=== PATIENT | male | born 1960 | race Caucasian/White ===

== ENCOUNTER 2016-07-26 11:13 | Inpatient (IN) | payer OTHER ==
[2016-07-26] VITALS (12 sets, daily range): BP systolic 102–148; BP diastolic 58–85; PULSE 73–88; RESP 18–22; TEMP 97.8–99.8; O2SAT 88–96
[~2016-07-26] VITALS: Ht 177.8 cm; Wt 54.8 kg
[~2016-07-26 11:13] MED LIST: AMIO200T PO; AMLO5 PO; Aspirin Chew PO; CARV3.125 PO; CITA20TA4 PO; DOCU1CAP39 PO; GLUC100017 PO; LORA-475 PO; MAGN500T4 PO; RITA20TA PO; SIMV20TA PO; SYMB160A INH; VENTAER INH
--- NOTE | 2016-07-26 11:43 | PD ---
HPI Chief Complaint: Chest Pain Time Seen by Provider: 11:23 Travel History International Travel<30 days: No Contact w/Intl Traveler<30days: No Traveled to known affect area: No History of Present Illness HPI This patient complains of cough and shortness of breath. Duration one day. Severity is moderate. He's had a bit of congestion and runny nose as well. Cough sometimes is productive. When he coughs his chest wall is irritated but only during the cough does he get any sort of pain or discomfort. Has subjective fever but never took his temperature. No alleviating factors. Patient bypass grafting surgery in March 2016 and has been diagnosed with COPD but unfortunately still smokes [facility] Past Medical History Asthma: No Anxiety: Yes Depression: No Heart Rhythm Problems: No Cancer: No Cardiovascular Problems: Yes High Cholesterol: No Chest Pain: Yes Congestive Heart Failure: No COPD: No Diabetes: No Diverticulitis: Yes Endocrine: No Glaucoma: No Genitourinary: No Hepatitis: No Hiatal Hernia: No Hypertension: Yes Immune Disorder: No Musculoskeletal: No Neurologic: No Psychiatric: Yes Reproductive: No Respiratory: No Integumentary: No Immunizations Current: Yes Sleep Apnea: No Thyroid Disease: No Past Surgical History Abdominal Surgery: Yes (hernia 2011) AICD: No Cardiac Surgery: No Ear Surgery: No Endocrine Surgery: No Eye Surgery: No Genitourinary Surgery: No Gynecologic Surgery: No Joint Replacement: No Oral Surgery: No Pacemaker: No Thoracic Surgery: No Social History Alcohol Use: Yes Tobacco Use: Yes (1PPD) Substance Use: No Allergies-Medications (Allergen,Severity, Reaction): Coded Allergies: No Known Allergies (Unverified , 03/05/16) Reported Meds & Prescriptions Reported Meds & Active Scripts Active Ventolin Hfa 18 GM Inh (Albuterol Sulfate) 90 Mcg/Act Aer 2 Puff INH Q4-6H PRN Norvasc (Amlodipine Besylate) 5 Mg Tab 5 Mg PO DAILY Symbicort Inh (Budesonide/Formoterol Fumarate) 160-4.5 Mcg/Act Aero 2 Puff INH Q12HR [Aspirin Chew] 81 MG Chew 81 Mg PO DAILY Reported Magnesium 500 Mg Tab 500 Mg PO HS Coreg (Carvedilol) 3.125 Mg Tab 3.125 Mg PO BID Citalopram (Citalopram Hydrobromide) 20 Mg Tab 20 Mg PO DAILY Ativan (Lorazepam) 2 Mg Tab 2 Mg PO HS PRN Ritalin IR (Methylphenidate HCl) 20 Mg Tab 20 Mg PO DAILY Simvastatin 20 Mg Tab 20 Mg PO HS Review of Systems General / Constitutional: No: Fever Eyes: No: Visual changes HENT: Positive: Rhinorrhea, Congestion, No: Headaches Cardiovascular: No: Tachycardia Respiratory: Positive: Cough, Shortness of Breath, Wheezing Gastrointestinal: No: Abdominal Pain Genitourinary: No: Dysuria Musculoskeletal: No: Pain Skin: No Rash Neurologic: No: Weakness Psychiatric: No: Depression Endocrine: No: Polydipsia Hematologic/Lymphatic: No: Easy Bruising Physical Exam Narrative GENERAL: Well-nourished, well-developed patient in no apparent distress. SKIN: Warm and dry. HEAD: Atraumatic. Normocephalic. EYES: Pupils equal and round. No scleral icterus. No injection or drainage. ENT: No nasal bleeding or discharge. Mucous membranes pink and moist. NECK: Trachea midline. No JVD. CARDIOVASCULAR: Regular rate and rhythm. No murmur appreciated. RESPIRATORY: No accessory muscle use. Diminished breath sounds throughout with some rhonchi and faint expiratory wheezing. Breath sounds equal bilaterally. GASTROINTESTINAL: Abdomen soft, non-tender, nondistended. Hepatic and splenic margins not palpable. MUSCULOSKELETAL: No obvious deformities. No clubbing. No cyanosis. No edema. Well-healed sternal scar NEUROLOGICAL: Awake and alert. No obvious cranial nerve deficits. Motor grossly within normal limits. Normal speech. PSYCHIATRIC: Appropriate mood and affect; insight and judgment normal. Data Data Last Documented VS Vital Signs Date Time Temp Pulse Resp B/P Pulse Ox O2 Delivery O2 Flow Rate FiO2 07/26/16 13:57 78 137/79 90 Nasal Cannula 5 07/26/16 11:31 99.8 22 Orders Complete Blood Count With Diff (07/26/16 11:32) Basic Metabolic Panel (Bmp) (07/26/16 11:32) Iv Access Insert/Monitor (07/26/16 11:32) Ecg Monitoring (07/26/16 11:32) Oximetry (07/26/16 11:32) Oxygen Administration (07/26/16 11:32) Chest, Single Ap (07/26/16 11:32) Sodium Chloride 0.9% Flush (Ns Flush) (07/26/16 11:45) Methylprednisolone So Succ Inj (Solumedr (07/26/16 11:45) Albuterol-Ipratropium Neb (Duoneb Neb) (07/26/16 11:45) Arterial Blood Gas (Abg) (07/26/16 ) Ct Pulmonary Angiogram (07/26/16 ) Prothrombin Time / Inr (Pt) (07/26/16 13:52) Act Partial Throm Time (Ptt) (07/26/16 13:52) Iohexol 350 Inj (Omnipaque 350 Inj) (07/26/16 13:53) Admit Order (Ed Use Only) (07/26/16 14:30) Labs Laboratory Tests Test 07/26/16 07/26/16 11:30 12:58 White Blood Count 10.1 TH/MM3 Red Blood Count 4.85 MIL/MM3 Hemoglobin 15.1 GM/DL Hematocrit 44.9 % Mean Corpuscular Volume 92.7 FL Mean Corpuscular Hemoglobin 31.1 PG Mean Corpuscular Hemoglobin 33.6 % Concent Red Cell Distribution Width 12.0 % Platelet Count 246 TH/MM3 Mean Platelet Volume 7.4 FL Neutrophils (%) (Auto) 78.0 % Lymphocytes (%) (Auto) 12.9 % Monocytes (%) (Auto) 8.6 % Eosinophils (%) (Auto) 0.1 % Basophils (%) (Auto) 0.4 % Neutrophils # (Auto) 7.9 TH/MM3 Lymphocytes # (Auto) 1.3 TH/MM3 Monocytes # (Auto) 0.9 TH/MM3 Eosinophils # (Auto) 0.0 TH/MM3 Basophils # (Auto) 0.0 TH/MM3 CBC Comment DIFF FINAL Differential Comment Sodium Level 142 MEQ/L Potassium Level 4.0 MEQ/L Chloride Level 106 MEQ/L Carbon Dioxide Level 26.0 MEQ/L Anion Gap 10 MEQ/L Blood Urea Nitrogen 13 MG/DL Creatinine 0.90 MG/DL Estimat Glomerular Filtration 87 ML/MIN Rate Random Glucose 111 MG/DL Calcium Level 8.4 MG/DL Blood Gas Puncture Site RT RADIAL Blood Gas Patient Temperature 98.6 Blood Gas HCO3 22 mmol/L Blood Gas Base Excess -1.0 mmol/L Blood Gas Oxygen Saturation 81 % Arterial Blood pH 7.47 Arterial Blood Partial 31 mmHG Pressure CO2 Arterial Blood Partial 47 mmHG Pressure O2 Arterial Blood Oxygen Content 16.6 Vol % Arterial Blood 2.1 % Carboxyhemoglobin Arterial Blood Methemoglobin 1.1 % Blood Gas Hemoglobin 14.6 G/DL Oxygen Delivery Device ROOM AIR Blood Gas Inspired Oxygen 21 % [facility] Medical Decision Making Medical Screen Exam Complete: Yes Emergency Medical Condition: Yes Medical Record Reviewed: Yes Differential Diagnosis Pneumonia, COPD, bronchitis Narrative Course I have reviewed the patient's electronic medical record. Reviewed his bypass grafting note from March 2016 as well as discharge summary from that hospitalization IV placed I reviewed his EKG which shows sinus rhythm and no ST elevation I reviewed his chest x-ray which is normal Extended cardiac monitoring reveals sinus rhythm without ectopy Pulse oximetry is 88% on room air Placed him on 3 L nasal cannula Gave him 3 nebulizer treatments and a dose of IV Solu-Medrol CBC is normal Metabolic profile is normal Coagulation studies are normal However despite all the above therapy he remains still hypoxic. I did a room air ABG which reveals a low PO2 of 47 showing significant hypoxemia Due to this I did a CTA of the chest to rule out PE and there is no evidence of PE Patient does not look unstable and looks clinically better than his PO2 would suggest He is now on 4 L nasal cannula with saturation of 95% I reviewed with hospitalist will admit Diagnosis Primary Impression: Acute hypoxemic respiratory failure Additional Impression: COPD with acute exacerbation Admitting Information Admitting Physician Requests: Admit Amilcar Yang MD Jul 26, 2016 11:43
[2016-07-26] MEDS ORDERED: SODIUM CHLORIDE 0.9% FLUSH 5 ML FLUSH IVF PRN (11:45)
[2016-07-26] MEDS ORDERED: methylPREDNISolone SOD SUCC 125 MG/2 ML VIAL IVP ONE (11:45)
[2016-07-26] MEDS: RESP: ALBUTEROL 2.5 MG/IPRATROPIUM 0.5 MG NEB (SCH) INH ×3 (11:50→20:06)
[2016-07-26 11:54] LABS: AUTOMATED NEUTROPHIL # 7.9 TH/MM3 (1.8-7.7); BASOPHIL % 0.4 % (0.0-2.0); EOSINOPHIL % 0.1 % (0.0-4.0); HEMATOCRIT 44.9 % (39.0-51.0); HEMO FLAGS DIFF FINAL; LYMPH % 12.9 % (9.0-44.0); LYMPHOCYTE # 1.3 TH/MM3 (1.0-4.8); MEAN CELL VOLUME 92.7 FL (80.0-100.0); MEAN CORPUSCULAR HEMOGLOBIN 31.1 PG (27.0-34.0); MEAN CORPUSCULAR HGB CONC 33.6 % (32.0-36.0); MONO % 8.6 % (0.0-8.0); PLATELET COUNT 246 TH/MM3 (150-450); RED BLOOD COUNT 4.85 MIL/MM3 (4.50-5.90); WHITE BLOOD COUNT 10.1 TH/MM3 (4.0-11.0)
--- NOTE | 2016-07-26 12:55 | RADHPO ---
EXAM DATE/TIME: 07/26/2016 12:05 [facility] COMPARISON: CHEST SINGLE AP, March 27, 2016, 5:18. INDICATIONS : Short of breath MEDICAL HISTORY : None. SURGICAL HISTORY : CABG. ENCOUNTER: Initial ACUITY: 1 day PAIN SCORE: 0/10 LOCATION: Bilateral chest FINDINGS: A single view of the chest demonstrates the lungs to be symmetrically aerated without evidence of mas s, infiltrate or effusion. The cardiomediastinal contours are unremarkable. Osseous structures are intact. Median sternotomy wires are intact. CONCLUSION: No acute cardiopulmonary process to explain current clinical symptoms. Hitesh Larsen MD on July 26, 2016 at 12:53 Board Certified Radiologist. This report was verified electronically.
[2016-07-26 13:07] LABS: BLOOD GAS CARBOXYHEMOGLOBIN 2.1 % (0-4); BLOOD GAS HCO3 22 mmol/L (22-26); BLOOD GAS METHEMOGLOBIN 1.1 % (0-2); BLOOD GAS O2 HGB SATURATION 81 % (90-100); BLOOD GAS OXYGEN CONTENT 16.6 Vol % (12.0-20.0); BLOOD GAS PCO2 31 mmHG (38-42); BLOOD GAS PO2 47 mmHG (61-120); BLOOD GAS TOTAL HGB 14.6 G/DL (12.0-16.0); TEMP CORR TO 98.6
[2016-07-26 13:08] LABS: CRITICAL VALUE YES; DRAW SITE RT RADIAL; FIO2 21 %; NUMBER OF ARTERIAL PUNCTURES 1; OXYGEN DEVICE ROOM AIR; STAT YES; ULNAR PULSE PRESENT
[2016-07-26] MEDS ORDERED: IOHEXOL 350 MG/ML 10 ML VIAL (for RAD DIAG) IV ONE (13:53)
--- NOTE | 2016-07-26 14:07 | RADHPO ---
EXAM DATE/TIME: 07/26/2016 13:35 2 [facility] COMPARISON: No previous studies available for comparison. INDICATIONS : Bilateral chest pain and short of breath on exertion. IV CONTRAST: 65 cc Omnipaque 350 (iohexol) IV RADIATION DOSE: 10.29 CTDIvol (mGy) MEDICAL HISTORY : Hypertension. Chronic obstructive pulmonary disease. Cardiovascular disease SURGICAL HISTORY : CABG Hernia repair. Orthopedic surgery. ENCOUNTER: Initial ACUITY: 1 day PAIN SCALE: 4/10 LOCATION: Bilateral chest TECHNIQUE: Volumetric scanning of the chest was performed using a pulmonary embolism protocol MIP images were re constructed. Using automated exposure control and adjustment of the mA and/or kV according to patien t size, radiation dose was kept as low as reasonably achievable to obtain optimal diagnostic quality images. FINDINGS: PULMONARY ARTERIES: No filling defects are seen in the pulmonary arteries through the segmental level. LUNGS: Moderate emphysematous changes. No evidence of focal infiltrate. PLEURAE: There is no pleural thickening or pleural effusion. MEDIASTINUM: There is good visualization of the great vessels of the middle mediastinum. No evidence of mediastin al or hilar adenopathy/mass. MUSCULOSKELETAL: Within normal limits for patient age. MISCELLANEOUS: The visualized upper abdominal organs demonstrate no acute abnormality. CONCLUSION: No evidence of pulmonary embolism Donny Washington MD on July 26, 2016 at 14:03 Board Certified Radiologist. This report was verified electronically.
[2016-07-26 14:43] LABS: APTT (PATIENT) 36.6 SEC (24.3-30.1); INTERNATIONAL NORMALIZED RATIO 1.1 RATIO; PROTHROMBIN TIME - PATIENT 11.7 SEC (9.8-11.6)
[2016-07-26] MEDS ORDERED: ONDANSETRON HCL 4 MG/2 ML VIAL IVP PRN (15:15)
[2016-07-26] MEDS ORDERED: RESP: ALBUTEROL 2.5 MG/3 ML NEB (PRN) INH (15:15)
[2016-07-26] MEDS ORDERED: ACETAMINOPHEN 325 MG TAB PO PRN (15:15)
[2016-07-26] MEDS ORDERED: SODIUM CHLORIDE 0.9% FLUSH 5 ML FLUSH FLUSH PRN (15:15)
[2016-07-26] MEDS ORDERED: NALOXONE HCL 0.4 MG/ML AMP IV PRN (15:15)
--- NOTE | 2016-07-26 15:30 | HHI.HP ---
HPI Service [facility] Hospitalists Primary Care Physician Dev Barragan MD Admission Diagnosis hypoxemic resp failure, COPD exac Diagnoses: Chief Complaint: SOB Cough Travel History International Travel<30 Days: No Contact w/Intl Traveler <30 Da: No Traveled to Known Affected Are: No History of Present Illness This is a 55-year-old male with past medical history significant for coronary artery disease status post CABG March 2016, COPD with continued tobacco use, HTN, anxiety and dyslipidemia who presents to [facility] ED with complaints of cough and progressive shortness of breath 2 days. Patient states yesterday he woke up with sore throat. Later in the day he developed dry cough and associated shortness of breath. Patient reports chest pain with cough only. He has some tenderness to touch over the anterior chest but states this has been present since he had his CABG procedure in March. He reports feeling feverish with chills. He did not record his temperature. He states that his chest feels very tight and he is congested. He reports generalized achiness. He denies any associated sore throat, runny nose, sinus or ear pain. He has a 16-year-old son with sinus infection. He reports headache. He continues to smoke a reported 1/3 - 1/2 pack per day and has smoked for 42 years. He denies using oxygen at home. He does not have a pulmonary doctor. He denies any N/V, dizziness, palpitations, sputum production, abdominal pain, hematuria, dysuria, diarrhea, hematochezia or melena. In the ED, patient received IV steroid and Duoneb treatment. He reports feeling much better now. CXR was unremarkable and CT chest showed only moderate emphysematous changes. Review of Systems Constitutional: COMPLAINS OF: Fever (reports being feverish x 24hrs), Chills, DENIES: Diaphoretic episodes, Weight loss, Dizziness Endocrine: DENIES: Polydipsia, Polyuria Eyes: DENIES: Blurred vision, Diplopia Ears, nose, mouth, throat: DENIES: Nasal discharge, Throat pain, Ear Pain, Running Nose, Sinus Pain Respiratory: COMPLAINS OF: Cough (dry x 2 days), Snoring (chronic), Shortness of breath (2 days as stated in history of present illness), DENIES: Wheezing, Hemoptysis, Sputum production Cardiovascular: COMPLAINS OF: Chest pain (with cough only), DENIES: Palpitations, Lower Extremity Edema, Orthopnea Gastrointestinal: DENIES: Abdominal pain, Black stools, Bloody stools, Diarrhea , Nausea, Vomiting Genitourinary: DENIES: Hematuria, Dysuria Musculoskeletal: DENIES: Joint Swelling, Back pain, Neck pain Integumentary: DENIES: Pruritus, Rash Hematologic/lymphatic: DENIES: Lymphadenopathy Immunologic/allergic: DENIES: Urticaria Neurologic: COMPLAINS OF: Headache (today), DENIES: Localized weakness Psychiatric: COMPLAINS OF: Anxiety (chronic, unchanged, takes 2 2mg Ativan nightly), DENIES: Confusion, Mood changes, Depression Past Family Social History Past Medical History CAD Hypertension Hyperlipidemia Anxiety Depression ADD COPD hx of diverticulitis Past Surgical History CABGx2 03/24 Inguinal hernia repair 2008 Reported Medications Ventolin Hfa 18 GM Inh (Albuterol Sulfate) 90 Mcg/Act Aer 2 Puff INH Q4-6H PRN Norvasc (Amlodipine Besylate) 5 Mg Tab 5 Mg PO DAILY Symbicort Inh (Budesonide/Formoterol Fumarate) 160-4.5 Mcg/Act Aero 2 Puff INH Q12HR [Aspirin Chew] 81 MG Chew 81 Mg PO DAILY Magnesium 500 Mg Tab 500 Mg PO HS Coreg (Carvedilol) 3.125 Mg Tab 3.125 Mg PO BID Citalopram (Citalopram Hydrobromide) 20 Mg Tab 20 Mg PO DAILY Ativan (Lorazepam) 2 Mg Tab 2 Mg PO HS PRN Ritalin IR (Methylphenidate HCl) 20 Mg Tab 20 Mg PO DAILY Simvastatin 20 Mg Tab 20 Mg PO HS Allergies: Coded Allergies: No Known Allergies (Unverified , 03/05/16) Active Ordered Medications Current Medications Medications (Trade) Dose Ordered Sig/Quan Route Start Time Stop Time Status Last Admin (NS Flush) 2 ml UNSCH PRN IVF 07/26/16 11:45 (Tylenol) 650 mg Q4H PRN PO 07/26/16 15:15 UNV (Zofran Inj) 4 mg Q6H PRN IVP 07/26/16 15:15 UNV (Colace) 100 mg Q12H PO 07/26/16 15:15 UNV (Narcan Inj) 0.4 mg UNSCH PRN IV 07/26/16 15:15 UNV (SoluMEDROL INJ) 40 mg Q8H IVP 07/26/16 15:15 UNV (Habitrol 21 Mg Patch.24 Hr) 1 patch DAILY TD 07/26/16 15:15 UNV Family History Father, age 85, stroke Mother, age 92, natural causes Social History Patient is and lives with his and son Works in food service utility worker industry Admits to tobacco use 1/3 - 1/2 pack/day x 42 years Reports h/o alcohol use 1 - 2 glasses wine/night Denies any illicit drug use Physical Exam Vital Signs Vital Signs Date Time Temp Pulse Resp B/P Pulse Ox O2 Delivery O2 Flow Rate FiO2 07/26/16 13:57 78 137/79 90 Nasal Cannula 5 07/26/16 13:15 91 Nasal Cannula 6.00 07/26/16 13:00 91 Nasal Cannula 5 07/26/16 11:31 99.8 88 22 148/85 88 07/26/16 11:25 90 Nasal Cannula 3 07/26/16 11:15 88 Nasal Cannula 2 Physical Exam GENERAL: This is a well-nourished, well-developed patient, in no apparent distress. On supplemental oxygen. SKIN: No rashes, ecchymoses or lesions. Cool and dry. HEAD: Atraumatic. Normocephalic. No temporal or scalp tenderness. EYES: Pupils equal round and reactive. Extraocular motions intact. No scleral icterus. No injection or drainage. ENT: Nose without bleeding, purulent drainage or septal hematoma. Throat without erythema, tonsillar hypertrophy or exudate. Uvula midline. Airway patent. NECK: Trachea midline. No lymphadenopathy. Supple, nontender, no meningeal signs. CARDIOVASCULAR: Well-healed sternotomy scar with some tenderness to palpation. Regular rate and rhythm without murmurs, gallops, or rubs. RESPIRATORY: Diminished air sounds. Scattered expiratory wheezing and inspiratory bronchial sounds appreciated. GASTROINTESTINAL: Abdomen soft, non-tender, nondistended. No hepato-splenomegaly , or palpable masses. No guarding. MUSCULOSKELETAL: Extremities without clubbing, cyanosis, or edema. No joint tenderness, effusion, or edema noted. No calf tenderness. NEUROLOGICAL: Awake and alert. Able to move all extremities. No focal neurologic deficits appreciated on exam. Laboratory Laboratory Tests Test 07/26/16 07/26/16 11:30 12:58 White Blood Count 10.1 Red Blood Count 4.85 Hemoglobin 15.1 Hematocrit 44.9 Mean Corpuscular Volume 92.7 Mean Corpuscular Hemoglobin 31.1 Mean Corpuscular Hemoglobin 33.6 Concent Red Cell Distribution Width 12.0 Platelet Count 246 Mean Platelet Volume 7.4 Neutrophils (%) (Auto) 78.0 Lymphocytes (%) (Auto) 12.9 Monocytes (%) (Auto) 8.6 Eosinophils (%) (Auto) 0.1 Basophils (%) (Auto) 0.4 Neutrophils # (Auto) 7.9 Lymphocytes # (Auto) 1.3 Monocytes # (Auto) 0.9 Eosinophils # (Auto) 0.0 Basophils # (Auto) 0.0 CBC Comment DIFF FINAL Differential Comment Prothrombin Time 11.7 Prothromb Time International 1.1 Ratio Activated Partial 36.6 Thromboplast Time Sodium Level 142 Potassium Level 4.0 Chloride Level 106 Carbon Dioxide Level 26.0 Anion Gap 10 Blood Urea Nitrogen 13 Creatinine 0.90 Estimat Glomerular Filtration 87 Rate Random Glucose 111 Calcium Level 8.4 Blood Gas Puncture Site RT RADIAL Blood Gas Patient Temperature 98.6 Blood Gas HCO3 22 Blood Gas Base Excess -1.0 Blood Gas Oxygen Saturation 81 Arterial Blood pH 7.47 Arterial Blood Partial 31 Pressure CO2 Arterial Blood Partial 47 Pressure O2 Arterial Blood Oxygen Content 16.6 Arterial Blood 2.1 Carboxyhemoglobin Arterial Blood Methemoglobin 1.1 Blood Gas Hemoglobin 14.6 Oxygen Delivery Device ROOM AIR Blood Gas Inspired Oxygen 21 Result Diagram: 07/26/16 1130 07/26/16 1130 Imaging Last 48 hours Impressions Chest X-Ray 07/26/16 1132 Signed Impressions: Service Date/Time: Tuesday, July 26, 2016 12:05 - CONCLUSION: No acute cardiopulmonary process to explain current clinical symptoms. Hitesh Larsen MD CT Angiography 07/26/16 0000 Signed Impressions: Service Date/Time: Tuesday, July 26, 2016 13:35 - CONCLUSION: No evidence of pulmonary embolism Donny Washington MD Assessment and Plan Assessment and Plan 55-year-old male with past medical history significant for coronary artery disease status post CABG March 2016, COPD with continued tobacco use, HTN, anxiety and dyslipidemia who presents to [facility] ED with complaints of cough and progressive shortness of breath 2 days. 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 Advised patient on suspicions and recommended cessation of alcohol consumption as well as Ativan use at night. Will also need pulmonary follow-up as an outpatient and sleep study. - Bedside PFTs ordered Bronchospasm with chest tightness & hx of COPD with ongoing tobacco use, however no hypercapnea - IV steroids - scheduled Duonebs - supplemental oxygen - cycle cardiac enzymes r/o underlying ACS considering his cardiac history - resume home bronchodilators - discussed smoking cessation - Nicotine patch - home oxygen walk test prior to discharge CAD/HTN/previous CABG with complaints of chest pain - hypotensive presently - ASA daily - hold Norvasc - resume home BB - monitor on telemetry - cycle cardiac enzymes Dyslipidemia - resume home statin Anxiety/depression - resume home Celexa - hold Lorazepam DVT prophylaxis - SCD/CUATE hose Written by Jael Palacios PA-C acting as scribe for Dr. Hernandez on 07/26/16 at 16:53. Physician Certification 2 Midnight Certification Type: Admission for Inpatient Services Order for Inpatient Services The services are ordered in accordance with Medicare regulations or non- Medicare payer requirements, as applicable. In the case of services not specified as inpatient-only, they are appropriately provided as inpatient services in accordance with the 2-midnight benchmark. Estimated LOS (days): 2 days is the estimated time the patient will need to remain in the hospital, assuming treatment plan goals are met and no additional complications. Post-Hospital Plan: Not yet determined Jael Palacios Jul 26, 2016 15:30 Calixto Hernandez MD Jul 26, 2016 18:31 Calixto Hernandez MD Jul 26, 2016 18:31
[2016-07-26] MEDS: NICOTINE 21 MG/24 HR PATCH TD SCH (15:37)
[2016-07-26] MEDS ORDERED: RESP: ALBUTEROL 2.5 MG/IPRATROPIUM 0.5 MG NEB (SCH) INH (16:00)
[2016-07-26] MEDS ORDERED: LORazepam 2 MG TAB PO PRN (16:15)
[2016-07-26 16:16] LABS: BLOOD GAS BASE EXCESS 0.2 mmol/L (-2-2); BLOOD GAS CARBOXYHEMOGLOBIN 1.8 % (0-4); BLOOD GAS HCO3 24 mmol/L (22-26); BLOOD GAS O2 HGB SATURATION 89 % (90-100); BLOOD GAS PCO2 38 mmHG (38-42); BLOOD GAS PO2 62 mmHG (61-120); BLOOD GAS TOTAL HGB 14.4 G/DL (12.0-16.0); CRITICAL VALUE YES; DRAW SITE LT RADIAL; LITER FLOW 4 L/M; NUMBER OF ARTERIAL PUNCTURES 1; OXYGEN DEVICE NASAL CANNULA; TEMP CORR TO 98.6
[2016-07-26 16:17] LABS: STAT NO; ULNAR PULSE PRESENT
[2016-07-26 20:36] LABS: CREATINE KINASE 116 U/L (39-308)
[2016-07-26 20:48] LABS: CKMB 0.7 NG/ML (0.5-3.6)
[2016-07-26] MEDS: REMOVE OLD NICODERM (NICOTINE) PATCH TD SCH (21:00)
[2016-07-26] MEDS: methylPREDNISolone SOD SUCC 40 MG/1 ML VIAL IV SCH (22:03)
[2016-07-26] MEDS: SODIUM CHLORIDE 0.9% FLUSH 5 ML FLUSH FLUSH SCH (22:03)
[2016-07-26] MEDS: DOCUSATE SODIUM 100 MG CAP PO SCH (22:05)
[2016-07-26] MEDS: BUDESONIDE-FORMOTEROL 160/4.5 MCG INHALER INH SCH (22:05)
[2016-07-26] MEDS: PRAVASTATIN SOD 40 MG TAB PO SCH (22:06)
[2016-07-26] MEDS: CARVEDILOL 3.125 MG TAB PO SCH (22:06)
[2016-07-26] MEDS ORDERED: diphenhydrAMINE HCL 25 MG CAP PO ONE (22:30)
[2016-07-27] VITALS (12 sets, daily range): BP systolic 121–148; BP diastolic 62–94; PULSE 47–83; RESP 18–22; TEMP 97.1–98.6; O2SAT 94–97
[2016-07-27 01:25] LABS: CREATINE KINASE 115 U/L (39-308)
[2016-07-27 01:38] LABS: CKMB 0.8 NG/ML (0.5-3.6)
[2016-07-27] MEDS: methylPREDNISolone SOD SUCC 40 MG/1 ML VIAL IV SCH ×2 (04:42→21:13)
[2016-07-27 05:21] LABS: AUTOMATED NEUTROPHIL # 11.3 TH/MM3 (1.8-7.7); BASOPHIL % 0.2 % (0.0-2.0); HEMATOCRIT 41.9 % (39.0-51.0); HEMO FLAGS DIFF FINAL; LYMPH % 8.2 % (9.0-44.0); LYMPHOCYTE # 1.1 TH/MM3 (1.0-4.8); MEAN CELL VOLUME 93.2 FL (80.0-100.0); MEAN CORPUSCULAR HEMOGLOBIN 31.9 PG (27.0-34.0); MEAN CORPUSCULAR HGB CONC 34.2 % (32.0-36.0); MONO % 3.5 % (0.0-8.0); NEUT % 88.1 % (16.0-70.0); PLATELET COUNT 224 TH/MM3 (150-450); RED BLOOD COUNT 4.49 MIL/MM3 (4.50-5.90); RED CELL DISTRIBUTION WIDTH 12.1 % (11.6-17.2); WHITE BLOOD COUNT 12.9 TH/MM3 (4.0-11.0)
[2016-07-27 05:38] LABS: MAGNESIUM 2.6 MG/DL (1.5-2.5)
[2016-07-27 05:50] LABS: CREATINE KINASE 94 U/L (39-308)
[2016-07-27 06:44] LABS: CHLORIDE 105 MEQ/L (98-107); POTASSIUM 4.3 MEQ/L (3.5-5.1); SODIUM (NA) 142 MEQ/L (136-145)
[2016-07-27 06:47] LABS: ANION GAP 11 MEQ/L (5-15); BICARBONATE 26.4 MEQ/L (21.0-32.0); BLOOD UREA NITROGEN 18 MG/DL (7-18)
[2016-07-27 06:50] LABS: ALT (GPT) 21 U/L (12-78); AST (GOT) 10 U/L (15-37); GLOMERULAR FILTRATION RATE 103 ML/MIN (>89)
[2016-07-27 06:52] LABS: TOTAL BILIRUBIN ADULT 0.4 MG/DL (0.2-1.0)
[2016-07-27 06:53] LABS: ALKALINE PHOSPHATASE 63 U/L (45-117)
[2016-07-27 07:17] LABS: CREATINE KINASE 93 U/L (39-308)
[2016-07-27] MEDS: RESP: ALBUTEROL 2.5 MG/IPRATROPIUM 0.5 MG NEB (SCH) INH ×4 (07:46→19:49)
[2016-07-27] MEDS: BUDESONIDE-FORMOTEROL 160/4.5 MCG INHALER INH SCH ×2 (09:16→21:16)
[2016-07-27] MEDS: DOCUSATE SODIUM 100 MG CAP PO SCH ×2 (09:17→21:15)
[2016-07-27] MEDS: CITALOPRAM HYDROBROMIDE 20 MG TAB PO SCH (09:17)
[2016-07-27] MEDS: amLODIPine BESYLATE 5 MG TAB PO SCH (09:17)
[2016-07-27] MEDS: ASPIRIN 81 MG CHEW TAB PO SCH (09:17)
[2016-07-27] MEDS: NICOTINE 21 MG/24 HR PATCH TD SCH (09:18)
[2016-07-27] MEDS: CARVEDILOL 3.125 MG TAB PO SCH ×2 (09:18→21:15)
[2016-07-27] MEDS: SODIUM CHLORIDE 0.9% FLUSH 5 ML FLUSH FLUSH SCH ×2 (09:19→21:14)
--- NOTE | 2016-07-27 09:23 | HHI.PR ---
Subjective Remarks Follow-up on patient with acute hypoxic respiratory failure. Patient states he feels some better today. Reports improvement of cough without sputum production. SOB improved but still requiring supplemental oxygen 5LNC. Denies any chest pain overnight. Objective Vitals Vital Signs Date Time Temp Pulse Resp B/P Pulse Ox O2 Delivery O2 Flow Rate FiO2 07/27/16 08:00 97.2 56 20 145/84 97 07/27/16 07:48 94 Nasal Cannula 5.00 07/27/16 04:00 97.3 60 18 146/84 96 07/27/16 00:00 97.1 64 18 121/62 96 07/26/16 20:11 73 07/26/16 20:06 93 Nasal Cannula 5.00 07/26/16 20:00 97.8 79 18 124/79 96 07/26/16 18:38 84 07/26/16 17:50 98.3 78 20 118/80 91 07/26/16 16:24 98.4 80 20 107/61 91 Nasal Cannula 6 07/26/16 15:18 82 102/58 88 4 07/26/16 13:57 78 137/79 90 Nasal Cannula 5 07/26/16 13:15 91 Nasal Cannula 6.00 07/26/16 13:00 91 Nasal Cannula 5 07/26/16 12:00 88 Room Air 07/26/16 11:31 99.8 88 22 148/85 88 07/26/16 11:25 90 Nasal Cannula 3 07/26/16 11:15 88 Nasal Cannula 2 I/O 07/26/16 07/26/16 07/26/16 07/27/16 07/27/16 07/27/16 07:00 15:00 23:00 07:00 15:00 23:00 Intake Total 0 ml 240 ml Output Total 200 ml Balance 0 ml 40 ml Intake Oral 240 ml IV Total 0 ml 0 ml Output Urine Total 200 ml # Bowel Movements 0 Result Diagram: 07/27/16 0508 07/27/16 0508 Imaging Last 48 hours Impressions Chest X-Ray 07/26/16 1132 Signed Impressions: Service Date/Time: Tuesday, July 26, 2016 12:05 - CONCLUSION: No acute cardiopulmonary process to explain current clinical symptoms. Hitesh Larsen MD CT Angiography 07/26/16 0000 Signed Impressions: Service Date/Time: Tuesday, July 26, 2016 13:35 - CONCLUSION: No evidence of pulmonary embolism Donny Washington MD Objective Remarks GENERAL: This is a well-nourished, well-developed patient, in no apparent distress. On supplemental oxygen 5L. SKIN: No rashes, ecchymoses or lesions. Cool and dry. HEAD: Atraumatic. Normocephalic. EYES: EOMI. NECK: Trachea midline. No JVD or lymphadenopathy. Supple, nontender, no meningeal signs. CARDIOVASCULAR: Well-healed sternotomy scar with some tenderness to palpation. Regular rate and rhythm without murmurs, gallops, or rubs. RESPIRATORY: Diminished air sounds. Rhonchi. GASTROINTESTINAL: Abdomen soft, non-tender, nondistended. No hepato-splenomegaly , or palpable masses. No guarding. MUSCULOSKELETAL: Extremities without clubbing, cyanosis, or edema. No joint tenderness, effusion, or edema noted. No calf tenderness. NEUROLOGICAL: Awake and alert. Able to move all 4 extremities. No focal neurologic deficit appreciated. Medications and IVs Current Medications Medications (Trade) Dose Ordered Sig/Quan Route Start Time Stop Time Status Last Admin (NS Flush) 2 ml UNSCH PRN FLUSH 07/26/16 15:15 07/27/16 04:43 (NS Flush) 2 ml BID FLUSH 07/26/16 21:00 07/27/16 09:19 (Tylenol) 650 mg Q4H PRN PO 07/26/16 15:15 (Zofran Inj) 4 mg Q6H PRN IVP 07/26/16 15:15 (Colace) 100 mg Q12HR PO 07/26/16 21:00 07/27/16 09:17 (Narcan Inj) 0.4 mg UNSCH PRN IV 07/26/16 15:15 (SoluMEDROL INJ) 40 mg Q8H IV 07/26/16 20:00 07/27/16 04:42 (Habitrol 21 Mg Patch.24 Hr) 1 patch DAILY TD 07/26/16 15:15 07/27/16 09:18 Miscellaneous Information 1 HS TD 07/26/16 21:00 07/26/16 21:00 (Symbicort 160-4.5 Inh) 2 puff Q12HR INH 07/26/16 21:00 07/27/16 09:16 (Coreg) 3.125 mg BID PO 07/26/16 21:00 07/27/16 09:18 (CeleXA) 20 mg DAILY PO 07/27/16 09:00 07/27/16 09:17 (Pravachol) 40 mg HS PO 07/26/16 21:00 07/26/16 22:06 (Aspirin Chew) 81 mg DAILY PO 07/27/16 09:00 07/27/16 09:17 (Norvasc) 5 mg DAILY PO 07/27/16 09:00 07/27/16 09:17 A/P Assessment and Plan 55-year-old male with past medical history significant for coronary artery disease status post CABG March 2016, COPD with continued tobacco use, HTN, anxiety and dyslipidemia who presents to [facility] ED with complaints of cough and progressive shortness of breath 2 days. 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 Advised patient on suspicions and recommended cessation of alcohol consumption as well as Ativan use at night. Will also need pulmonary follow-up as an outpatient and sleep study. Bronchospasm with chest tightness no documented history of COPD with ongoing tobacco use, however no hypercapnea - Continue IV steroids, begin taper - scheduled Duonebs - supplemental oxygen - cycle cardiac enzymes r/o underlying ACS considering his cardiac history - troponins neg x 4 - continue home bronchodilators - discussed smoking cessation - Nicotine patch - home oxygen walk test prior to discharge CAD/HTN/previous CABG with complaints of chest pain - hypotension resolved, resume home Norvasc, continue Carvedilol - ASA daily - d/c telemetry - cycle cardiac enzymes - troponins neg x 4 Dyslipidemia - resume home statin Anxiety/depression - continue home Celexa - hold Lorazepam DVT prophylaxis - SCD/CUATE hose Written by Jael Palacios, acting as scribe for Dr. Hernandez on 07/27/16 at 10:00. Jael Palacios Jul 27, 2016 09:23 Calixto Hernandez MD Jul 27, 2016 11:13 Calixto Hernandez MD Jul 27, 2016 11:13
--- NOTE | 2016-07-27 10:37 | EKG ---
Date Performed: 07/26/2016 Time Performed: 11:12:30 PTAGE: 55 years EKG: Sinus rhythm IV conduction defect Inferior ST-T changes are nonspecific Abnormal ECG PREVIOUS TRACING : 03/24/2016 05.18 DOCTOR: Jareth Gasca Interpretating Date/Time 07/27/2016 10:36:30
[2016-07-27] MEDS: REMOVE OLD NICODERM (NICOTINE) PATCH TD SCH (21:00)
[2016-07-27] MEDS ORDERED: diphenhydrAMINE HCL 25 MG CAP PO PRN (21:15)
[2016-07-27] MEDS: PRAVASTATIN SOD 40 MG TAB PO SCH (21:15)
[2016-07-28] VITALS (10 sets, daily range): BP systolic 125–141; BP diastolic 73–84; PULSE 51–63; RESP 18–22; TEMP 96–98.3; O2SAT 93–98
[2016-07-28] MEDS: RESP: ALBUTEROL 2.5 MG/IPRATROPIUM 0.5 MG NEB (SCH) INH ×4 (07:33→19:31)
[2016-07-28] MEDS: BUDESONIDE-FORMOTEROL 160/4.5 MCG INHALER INH SCH ×2 (08:29→21:53)
[2016-07-28] MEDS: amLODIPine BESYLATE 5 MG TAB PO SCH (08:30)
[2016-07-28] MEDS: DOCUSATE SODIUM 100 MG CAP PO SCH ×2 (08:30→21:00)
[2016-07-28] MEDS: CITALOPRAM HYDROBROMIDE 20 MG TAB PO SCH (08:30)
[2016-07-28] MEDS: CARVEDILOL 3.125 MG TAB PO SCH ×2 (08:30→21:53)
[2016-07-28] MEDS: ASPIRIN 81 MG CHEW TAB PO SCH (08:30)
[2016-07-28] MEDS: NICOTINE 21 MG/24 HR PATCH TD SCH (08:30)
[2016-07-28] MEDS: methylPREDNISolone SOD SUCC 40 MG/1 ML VIAL IV SCH (08:30)
[2016-07-28] MEDS: SODIUM CHLORIDE 0.9% FLUSH 5 ML FLUSH FLUSH SCH ×2 (08:31→21:53)
[2016-07-28] MEDS ORDERED: AZITHROMYCIN INJ 500 MG in SODIUM CHLOR 0.9% 250 ML INJ 250 ML IV SCH (18:00)
[2016-07-28] MEDS ORDERED: ZOLPIDEM TARTRATE 5 MG TAB PO PRN (18:15)
--- NOTE | 2016-07-28 19:18 | HHI.PR ---
Subjective Remarks Follow up on acute hypoxemic hypocapnic respiratory failure Resting on the chair , he is on 2 L nasal cannula oxygen today feeling slightly better He was seen by Dr. Donahue, who told him hopefully he will be able to be weaned off oxygen tomorrow and be discharged Objective Vitals Vital Signs Date Time Temp Pulse Resp B/P Pulse Ox O2 Delivery O2 Flow Rate FiO2 07/28/16 16:00 97.3 58 20 133/81 97 07/28/16 12:03 93 Nasal Cannula 2.00 07/28/16 12:00 96.0 58 20 129/84 95 07/28/16 08:00 96.4 51 20 141/82 98 07/28/16 08:00 52 07/28/16 07:34 98 Nasal Cannula 2.00 07/28/16 04:00 96.5 62 21 129/73 97 07/28/16 00:00 96.8 60 22 125/80 95 07/27/16 20:34 83 07/27/16 20:00 97.4 63 22 137/94 94 07/27/16 19:50 96 Nasal Cannula 2.00 I/O 07/27/16 07/27/16 07/27/16 07/28/16 07/28/16 07/28/16 07:00 15:00 23:00 07:00 15:00 23:00 Intake Total 240 ml 620 ml 0 ml 120 ml 1000 ml Output Total 200 ml Balance 40 ml 620 ml 0 ml 120 ml 1000 ml Intake Oral 240 ml 620 ml 120 ml 1000 ml IV Total 0 ml 0 ml 0 ml Output Urine Total 200 ml # Voids 2 1 2 4 # Bowel Movements 0 1 1 Result Diagram: 07/27/16 0508 07/27/16 0508 Objective Remarks GENERAL: This is a well-nourished, well-developed patient, in no apparent distress. On supplemental oxygen. SKIN: No rashes, ecchymoses or lesions. Cool and dry. HEAD: Atraumatic. Normocephalic. No temporal or scalp tenderness. EYES: Pupils equal round and reactive. Extraocular motions intact. No scleral icterus. No injection or drainage. ENT: Nose without bleeding, purulent drainage or septal hematoma. Throat without erythema, tonsillar hypertrophy or exudate. Uvula midline. Airway patent. NECK: Trachea midline. No lymphadenopathy. Supple, nontender, no meningeal signs. CARDIOVASCULAR: Well-healed sternotomy scar with some tenderness to palpation. Regular rate and rhythm without murmurs, gallops, or rubs. RESPIRATORY: Diminished air sounds. Scattered expiratory wheezing and inspiratory bronchial sounds appreciated. GASTROINTESTINAL: Abdomen soft, non-tender, nondistended. No hepato-splenomegaly , or palpable masses. No guarding. MUSCULOSKELETAL: Extremities without clubbing, cyanosis, or edema. No joint tenderness, effusion, or edema noted. No calf tenderness. NEUROLOGICAL: Awake and alert. Able to move all extremities. No focal neurologic deficits appreciated on exam. A/P Assessment and Plan 55-year-old male with past medical history significant for coronary artery disease status post CABG March 2016, COPD with continued tobacco use, HTN, anxiety and dyslipidemia who presents to [facility] ED with complaints of cough and progressive shortness of breath 2 days. 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 Advised patient on suspicions and recommended cessation of alcohol consumption as well as Ativan use at night. Will also need pulmonary follow-up as an outpatient and sleep study. Bronchospasm with chest tightness no documented history of COPD with ongoing tobacco use, however no hypercapnea - Continue IV steroids, begin taper - scheduled Duonebs - supplemental oxygen - cycle cardiac enzymes r/o underlying ACS considering his cardiac history - troponins neg x 4 - continue home bronchodilators - discussed smoking cessation - Nicotine patch - home oxygen walk test prior to discharge CAD/HTN/previous CABG with complaints of chest pain - hypotension resolved, resume home Norvasc, continue Carvedilol - ASA daily - d/c telemetry - cycle cardiac enzymes - troponins neg x 4 Dyslipidemia - resume home statin Anxiety/depression - continue home Celexa - hold Lorazepam DVT prophylaxis - SCD/CUATE hose Discharge Planning When cleared by pulmonology Calixto Hernandez MD Jul 28, 2016 19:18
--- NOTE | 2016-07-28 19:56 | MB ---
cc: EBONI HERNANDEZ MD, JOHN DATE OF CONSULTATION: 07/28/2016 REASON FOR CONSULTATION: COPD, acute bronchitis. HISTORY OF PRESENT ILLNESS: This is 55 year-old white male with a past history of coronary artery disease and COPD, has been a smoker for over 40 years. He apparently started to have dry cough two days ago with sinus drainage and over the course of one day his symptoms worsened to shortness of breath, cough, and wheezing. He was bringing up thick yellow mucous. The patient also had some chest tightness and back pain, and he thus came to the emergency room and was subsequently admitted. The patient had a chest x-ray and a CT scan of the chest, and CT angiogram showed no evidence of pulmonary emboli, and no acute process. His gases, however, showed hypoxemia and has been on oxygen at 2 liters. The patient has had no leg swelling or calf muscle pain. He has had no weight loss, and denies nausea, vomiting or reflux. PAST HISTORY 1. History of chronic bronchitis. 2. History of hypertension. 3. Hyperlipidemia. 4. Depression. 5. Coronary artery disease. 6. History of coronary artery bypass grafting x2 four months ago. 7. History of diverticulosis. 8. History of anxiety and depression. 9. History of inguinal hernia repair. HABITS The patient smoked one-pack per day for 40 years. No significant alcohol. He works at a fast food restaurant. FAMILY HISTORY Noncontributory ALLERGIES No drug allergies. MEDICATIONS: 1. Symbicort 160 x 4.5, two puffs b.i.d. 2. Ventolin two puffs p.r.n. 3. Coreg 3.125 b.i.d. 4. Citalopram 20 milligrams a day. 5. Ativan 2 milligrams hs. 6. Ritalin 20 milligrams daily. 7. Simvastatin 20 milligrams hs. 8. Norvasc 5 milligrams a day. REVIEW OF SYSTEMS The patient denies weight loss. He has some headaches, postnasal drip. He has wheezing and epigastric distress. Denies vomiting and no urinary symptoms. No leg or calf muscle pains. He has some joint pains of his extremities. PHYSICAL EXAMINATION This averagely built middle-aged white male is alert, face is flushed. VITAL SIGNS: Blood pressure 130/70, pulse is 80, respirations 22, temperature 98.2. HEENT: Head normocephalic. Pupils reactive. Tongue moist. Throat is injected, nasal mucosa erythematous. Neck: Supple. No bruits or thyroid enlargement or lymphadenopathy. Chest: Equal movements with distant breath sounds. Occasional expiratory wheezes throughout both lung lainez. Heart: The heart sounds are regular S1-S2. No murmur. Abdomen is soft, protuberant. No masses or organomegaly or tenderness. Bowel sounds active. Extremities: No edema. No lesions. No calf tenderness. Reflexes are normal, there were no gross motor deficits. Skin: No lesions observed. IMPRESSION 1. COPD with acute exacerbation 2. Asthmatic bronchitis 3. Nicotine dependency. 4. Anxiety, depression 5. History of coronary artery disease. 6. History of CABG. PLAN The patient has been placed on O2 at 2 liters. He will be weaned off the Solu-Medrol, placed on prednisone 20 mg b.i.d. We will continue with antibiotic coverage and he will be placed on Zithromax 500 mg IV daily. Pulmonary function was done but the results are pending. He was counseled about quitting cigarette smoking. The patient will also be placed on Symbicort 160 x 4.5 two puffs twice a day. If his oxygen saturation is adequate on room air, he will be weaned off oxygen and hopefully we can discharge him over the next 24 to 48 hours. Thank you, Dr. Hernandez, for this consultation. MD GABRIEL Dinero/ALESSANDRO /6:04 PM /7:44 PM
[2016-07-28] MEDS: REMOVE OLD NICODERM (NICOTINE) PATCH TD SCH (21:00)
[2016-07-28] MEDS: PRAVASTATIN SOD 40 MG TAB PO SCH (21:53)
[2016-07-28] MEDS: predniSONE 20 MG TAB PO SCH (21:53)
[2016-07-29] VITALS: BP 149/82; PULSE 60; RESP 18; TEMP 97.8; O2SAT 96
[2016-07-29 04:00] VITALS: BP 150/84; PULSE 60; RESP 18; TEMP 97.4; O2SAT 96
[2016-07-29] MEDS: RESP: ALBUTEROL 2.5 MG/IPRATROPIUM 0.5 MG NEB (SCH) INH (07:39)
[2016-07-29 07:40] VITALS: O2SAT 98
[2016-07-29 08:00] VITALS: BP 149/98; PULSE 51; PULSE 55; RESP 20; TEMP 96.8; O2SAT 92
[2016-07-29] MEDS: CARVEDILOL 3.125 MG TAB PO SCH (08:34)
[2016-07-29] MEDS: ASPIRIN 81 MG CHEW TAB PO SCH (08:34)
[2016-07-29] MEDS: predniSONE 20 MG TAB PO SCH (08:34)
[2016-07-29] MEDS: CITALOPRAM HYDROBROMIDE 20 MG TAB PO SCH (08:34)
[2016-07-29] MEDS: BUDESONIDE-FORMOTEROL 160/4.5 MCG INHALER INH SCH (08:34)
[2016-07-29] MEDS: DOCUSATE SODIUM 100 MG CAP PO SCH (08:34)
[2016-07-29] MEDS: amLODIPine BESYLATE 5 MG TAB PO SCH (08:34)
[2016-07-29] MEDS: NICOTINE 21 MG/24 HR PATCH TD SCH (08:35)
[2016-07-29] MEDS: SODIUM CHLORIDE 0.9% FLUSH 5 ML FLUSH FLUSH SCH (08:35)
[2016-07-29] MEDS ORDERED: ALBU0.08 INH (09:03)
[2016-07-29] MEDS ORDERED: NEBUKIT5 (09:03)
[2016-07-29] MEDS ORDERED: PRED10PA PO (09:03)
[2016-07-29] MEDS ORDERED: AZIT250T3 PO (09:03)
--- NOTE | 2016-07-29 09:04 | HHI.DCPOC ---
Discharge Care Plan Diagnosis: (1) Coronary artery disease (2) Tobacco abuse (3) COPD with acute exacerbation (4) Acute hypoxemic respiratory failure Goals to Promote Your Health * To prevent worsening of your condition and complications * To maintain your health at the optimal level Directions to Meet Your Goals Take your medications as prescribed Follow your dietary instruction Follow activity as directed Keep your appointments as scheduled Take your immunizations and boosters as scheduled If your symptoms worsen call your PCP, if no PCP go to Urgent Care Center or Emergency Room Smoking is Dangerous to Your Health. Avoid second hand smoke Call the 24-hour hour crisis hotline for domestic abuse at Amilcar Dunn MD Jul 29, 2016 09:04
--- NOTE | 2016-07-29 09:23 | HHI.DS ---
cc: Dev Barragan MD Discharge Summary Admission Date Jul 27, 2016 at 11:01 Discharge Date: Jul 29, 2016 Admitting Diagnosis hypoxemic resp failure, COPD exac (1) COPD with acute exacerbation ICD Code: J44.1 (2) Acute hypoxemic respiratory failure ICD Code: J96.01 Procedures None Brief History - From Admission This is a 55-year-old male with past medical history significant for coronary artery disease status post CABG March 2016, COPD with continued tobacco use, HTN, anxiety and dyslipidemia who presents to [facility] ED with complaints of cough and progressive shortness of breath 2 days. Patient states yesterday he woke up with sore throat. Later in the day he developed dry cough and associated shortness of breath. Patient reports chest pain with cough only. He has some tenderness to touch over the anterior chest but states this has been present since he had his CABG procedure in March. He reports feeling feverish with chills. He did not record his temperature. He states that his chest feels very tight and he is congested. He reports generalized achiness. He denies any associated sore throat, runny nose, sinus or ear pain. He has a 16-year-old son with sinus infection. He reports headache. He continues to smoke a reported 1/3 - 1/2 pack per day and has smoked for 42 years. He denies using oxygen at home. He does not have a pulmonary doctor. He denies any N/V, dizziness, palpitations, sputum production, abdominal pain, hematuria, dysuria, diarrhea, hematochezia or melena. In the ED, patient received IV steroid and Duoneb treatment. He reports feeling much better now. CXR was unremarkable and CT chest showed only moderate emphysematous changes. CBC/BMP: 07/27/16 0508 07/27/16 0508 Significant Findings Laboratory Tests Test 07/26/16 07/26/16 07/26/16 07/26/16 11:30 12:58 16:10 20:04 Neutrophils (%) (Auto) 78.0 % (16.0-70.0) Monocytes (%) (Auto) 8.6 % (0.0-8.0) Neutrophils # (Auto) 7.9 TH/MM3 (1.8-7.7) Prothrombin Time 11.7 SEC (9.8-11.6) Activated Partial 36.6 SEC Thromboplast Time (24.3-30.1) Estimat Glomerular Filtration 87 ML/MIN (>89) Rate Random Glucose 111 MG/DL (74-106) Calcium Level 8.4 MG/DL (8.5-10.1) Troponin I LESS THAN 0.02 LESS THAN 0.02 NG/ML NG/ML (0.02-0.05) (0.02-0.05) Blood Gas Oxygen Saturation 81 % (90-100) 89 % (90-100) Arterial Blood pH 7.47 (7.380-7.420) Arterial Blood Partial 31 mmHG (38-42) Pressure CO2 Arterial Blood Partial 47 mmHG Pressure O2 (61-120) Test 07/27/16 07/27/16 00:52 05:08 Troponin I LESS THAN 0.02 LESS THAN 0.02 NG/ML NG/ML (0.02-0.05) (0.02-0.05) White Blood Count 12.9 TH/MM3 (4.0-11.0) Red Blood Count 4.49 MIL/MM3 (4.50-5.90) Neutrophils (%) (Auto) 88.1 % (16.0-70.0) Lymphocytes (%) (Auto) 8.2 % (9.0-44.0) Neutrophils # (Auto) 11.3 TH/MM3 (1.8-7.7) Random Glucose 149 MG/DL (74-106) Magnesium Level 2.6 MG/DL (1.5-2.5) Aspartate Amino Transf 10 U/L (15-37) (AST/SGOT) Albumin 3.3 GM/DL (3.4-5.0) Imaging Last Impressions Chest X-Ray 07/26/16 1132 Signed Impressions: Service Date/Time: Tuesday, July 26, 2016 12:05 - CONCLUSION: No acute cardiopulmonary process to explain current clinical symptoms. Hitesh Larsen MD CT Angiography 07/26/16 0000 Signed Impressions: Service Date/Time: Tuesday, July 26, 2016 13:35 - CONCLUSION: No evidence of pulmonary embolism Donny Washington MD PE at Discharge General: No acute distress. Heart: Regular rate and rhythm. No murmur. Lungs: Scattered wheeze. Breathing is nonlabored. Abdomen: Soft, nontender, nondistended. Extremities: No lower extremity edema. Psych: Alert and oriented. Pt update on day of discharge The patient states that he feels much better today after receiving an antibiotic yesterday. States that he wants to go home. Shortness of breath has improved. He has been off of oxygen this morning. Hospital Course Patient was admitted for treatment of exacerbation of COPD, acute hypoxic respiratory failure. He was started on steroids, oxygen, nebulizer treatments. Symptoms improved throughout the hospitalization. Pulmonology was consulted. Patient was transitioned from IV steroids to oral prednisone. He was felt to be stable for discharge as he was no longer requiring supplemental oxygen and was stable on room air. Pt Condition on Discharge: Stable Discharge Disposition: Discharge Home Discharge Time: > 30 minutes Discharge Instructions DIET: Follow Instructions for: Heart Healthy Diet Activities you can perform: Regular-No Restrictions Follow up Referrals: PCP Follow-up - 1 Week Pulmonology - 1 Week with Puneet Schmidt MD New Medications: Azithromycin (Azithromycin) 250 Mg Tab 250 MG PO DAILY Infection #3 Ref 0 TAB Nebulizer Kit/Tubing/Mout (Nebulizer Kit/Tubing/Mout) 1 Kit Kit KIT #1 Prednisone (21) 10 mg tab Dose Pack (Prednisone (21) 10 mg tab Dose Pack) 10 Mg Pack 10 MG PO DIRECTED Inflammation #1 Ref 0 DSPK Albuterol Neb (Albuterol Neb) 2.5 Mg/3 Ml Neb 2.5 MG INH Q2HR NEB PRN SHORTNESS OF BREATH #60 Ref 0 NEBULE Continued Medications: Albuterol 18 GM Inh (Ventolin Hfa 18 GM Inh) 90 Mcg/Act Aer 2 PUFF INH Q4-6H PRN SHORTNESS OF BREATH #1 Ref 2 INHALER Amlodipine (Norvasc) 5 Mg Tab 5 MG PO DAILY Blood Pressure Management #30 Ref 2 TAB Budesonide-Formoterol Inh (Symbicort Inh) 160-4.5 Mcg/Act Aero 2 PUFF INH Q12HR COPD #1 Ref 2 INHALER Carvedilol (Coreg) 3.125 Mg Tab 3.125 MG PO BID #60 Ref 0 TAB Citalopram (Citalopram) 20 Mg Tab 20 MG PO DAILY Control Depression #30 Ref 0 TAB Lorazepam (Ativan) 2 Mg Tab 2 MG PO HS PRN ANXIETY AND/OR AGITATION Ref 0 TAB Magnesium (Magnesium) 500 Mg Tab 500 MG PO HS Nutritional Supplement Ref 0 TAB Methylphenidate IR (Ritalin IR) 20 Mg Tab 20 MG PO DAILY #60 Ref 0 TAB Simvastatin (Simvastatin) 20 Mg Tab 20 MG PO HS Cholesterol Management #30 Ref 0 TAB ([Aspirin Chew]) 81 MG CHEW 81 MG PO DAILY Blood Clot Prevention #100 Ref 2 TAB.CHEW Amilcar Dunn MD Jul 29, 2016 09:23
--- NOTE | 2016-08-03 09:06 | RSPPFT ---
DATE OF PROCEDURE: 07/27/16 COMMENTS: Spirometry demonstrates an FEV1 of 1.3 at 35% predicted, FVC of 2.9 at 62%, FEV1/FVC ratio is 44%. The FEF 25-75 is 17% of predicted. Spirometry suggests severe obstructive disease. Flow volume loops suggest severe obstruction. IMPRESSION: 1. Severe obstructive airways disease.
== END 2016-07-29 10:15 | disposition home or self-care (01) | DRG 189 ==
LOC: PHED 11:13 → PHEDA 14:31 → INTOOBSV 14:31 → PH3A 17:44 → OBSVTOIN 07-27 11:01
PROVIDERS: ADMIT Family Medicine; ATTEND Family Medicine
DX: J96.01 Acute respiratory failure with hypoxia (principal); J44.1 Chronic obstructive pulmonary disease with (acute) exacerbation; I10 Essential (primary) hypertension; F17.210 Nicotine dependence, cigarettes, uncomplicated; I25.10 Atherosclerotic heart disease of native coronary artery without angina pectoris; F41.9 Anxiety disorder, unspecified; E78.5 Hyperlipidemia, unspecified; F32.9 Major depressive disorder, single episode, unspecified; Z95.1 Presence of aortocoronary bypass graft
CPT/HCPCS: 36600; 71010; 71275; 80048; 80053; 82550; 82552; 82805; 83735; 84484; 85025; 85610; 85730; 93005; 94010; 94620; 94640; 94664; 96374; G0378; J0456; J2920; J2930; J7050; J7512; Q9967

== ENCOUNTER 2017-09-05 10:18 | Emergency (ER) | payer OTHER ==
[~2017-09-05] VITALS: Ht 177.8 cm; Wt 63.7 kg
[~2017-09-05 10:18] MED LIST changes: +ALBU0.08 INH; -AMIO200T PO; +AZIT250T3 PO; -DOCU1CAP39 PO; -GLUC100017 PO; +NEBUKIT5; +PRED10PA PO
[2017-09-05] MEDS ORDERED: IOHEXOL 350 MG/ML 10 ML VIAL (for RAD DIAG) IVCONTRAST ONE (10:19)
[2017-09-05 10:25] VITALS: BP 141/84; PULSE 74; RESP 16; TEMP 98.3; O2SAT 99
--- NOTE | 2017-09-05 10:42 | PD ---
HPI Chief Complaint: Pain: Acute or Chronic Time Seen by Provider: 10:32 Travel History International Travel<30 days: No Contact w/Intl Traveler<30days: No Traveled to known affect area: No History of Present Illness HPI 56-year-old male came to the emergency room with history of left lower extremity pain mostly upon exertion that is progressively worsening over past 1 month. Patient says that currently it has come to the point where even if he stands up and walks a few feet he starts getting pain which gets worse if the activity continues. This past weekend he was moving some furniture is in his house with his when he had to take frequent breaks to give his leg rest and that the pain go away. The pain is gone when he is resting and not moving. Patient is a smoker. He had CABG 2 years ago. He continues to smoke. Does not require oxygen at home. Patient is supposed to be on aspirin but stopped taking it because he was having frequent skin bleed. Currently he is laying down and his pain is 0. When the pain occurs with exertion it is the entire left leg. He also notices that the color of his foot gets darker purple. Today his made him go to his primary care who examined him and was unable to feel a pulse on his foot. He asked him to come to the emergency room to see a vascular surgeon. Vital signs are stable. Patient denies of any chest pain. [facility] Past Medical History Narrative Medical List of his past medical, surgical, social and family history is reviewed from the nursing note. Asthma: No Anxiety: Yes Depression: Yes Heart Rhythm Problems: No Cancer: No Cardiovascular Problems: Yes High Cholesterol: Yes Chest Pain: Yes Congestive Heart Failure: No COPD: Yes Coronary Artery Disease: Yes (hx CABG) Diabetes: No Diverticulitis: Yes Endocrine: No Glaucoma: No Genitourinary: No Hepatitis: No Hiatal Hernia: No Hypertension: Yes Immune Disorder: No Musculoskeletal: No Neurologic: No Psychiatric: Yes Reproductive: No Respiratory: Yes Integumentary: No Immunizations Current: Yes Sleep Apnea: No Thyroid Disease: No Past Surgical History Abdominal Surgery: Yes (hernia 2011) AICD: No Body Medical Devices: chest ties Cardiac Surgery: No Ear Surgery: No Endocrine Surgery: No Eye Surgery: No Genitourinary Surgery: No Gynecologic Surgery: No Joint Replacement: No Oral Surgery: No Pacemaker: No Thoracic Surgery: No Other Surgery: Yes (triple bypass) Social History Alcohol Use: Yes Tobacco Use: Yes (05/11 ppd) Substance Use: No Allergies-Medications (Allergen,Severity, Reaction): Coded Allergies: No Known Allergies (Unverified Adverse Reaction, Unknown, 09/05/17) Comments No known drug allergies. Reported Meds & Prescriptions Reported Meds & Active Scripts Active Aspirin 325 Mg Tab 325 Mg PO DAILY Prednisone (21) 10 mg tab Dose Pack (Prednisone) 10 Mg Pack 10 Mg PO DIRECTED Nebulizer Kit/Tubing/Mout (N/A) 1 Kit Kit Kit Albuterol Neb (Albuterol Sulfate) 2.5 Mg/3 Ml Neb 2.5 Mg INH Q2HR NEB PRN Ventolin Hfa 18 GM Inh (Albuterol Sulfate) 90 Mcg/Act Aer 2 Puff INH Q4-6H PRN Reported Trazodone (Trazodone HCl) 50 Mg Tab 50 Mg PO HS Cymbalta DR (Duloxetine HCl) 20 Mg Capdr 20 Mg PO DAILY Amlodipine (Amlodipine Besylate) 10 Mg Tab 10 Mg PO DAILY Breo Ellipta Inh (Fluticasone/Vilanterol) 200-25 Mcg/Act Inh 1 Puff INH DAILY Use daily at the same time. Coreg (Carvedilol) 3.125 Mg Tab 3.125 Mg PO BID Ativan (Lorazepam) 2 Mg Tab 2 Mg PO HS PRN Simvastatin 20 Mg Tab 20 Mg PO HS Narrative Medication List of his home medications reviewed from the nursing note. Review of Systems Except as stated in HPI: all other systems reviewed are Neg Musculoskeletal: Positive: Pain Physical Exam Narrative GENERAL: Awake, alert, no obvious distress SKIN: Focused skin assessment warm/dry. Left foot is more congested appearing. HEAD: Atraumatic. Normocephalic. EYES: Pupils equal and round. No scleral icterus. No injection or drainage. ENT: No nasal bleeding or discharge. Mucous membranes pink and moist. NECK: Trachea midline. No JVD. CARDIOVASCULAR: Regular rate and rhythm. No murmur appreciated. RESPIRATORY: No accessory muscle use. Clear to auscultation. Breath sounds equal bilaterally. GASTROINTESTINAL: Abdomen soft, non-tender, nondistended. Hepatic and splenic margins not palpable. MUSCULOSKELETAL: No obvious deformities. No clubbing. No cyanosis. No edema. Bilateral DPs absent on palpation or Doppler. Bilateral PTs present on Doppler. Left PT appears more dampened than the right NEUROLOGICAL: Awake and alert. No obvious cranial nerve deficits. Motor grossly within normal limits. Normal speech. PSYCHIATRIC: Appropriate mood and affect; insight and judgment normal. Data Data Last Documented VS Orders Orders Electrocardiogram (09/05/17 10:51) Basic Metabolic Panel (Bmp) (09/05/17 10:51) Complete Blood Count With Diff (09/05/17 10:51) Magnesium (Mg) (09/05/17 10:51) Prothrombin Time / Inr (Pt) (09/05/17 10:51) Act Partial Throm Time (Ptt) (09/05/17 10:51) Troponin I (09/05/17 10:51) Chest, Single Ap (09/05/17 10:51) Sodium Chloride 0.9% Flush (Ns Flush) (09/05/17 11:00) Cta Runoff W Iv Contrast W 3d (09/05/17 ) Iohexol 350 Inj (Omnipaque 350 Inj) (09/05/17 10:19) Heparin Inj (Heparin Inj) (09/05/17 14:15) Heparin Inj (Heparin Inj) (09/05/17 20:15) Heparin Inj (Heparin Inj) (09/05/17 20:15) Heparin-D5w 25,000 U/250 Ml (Heparin-D5w (09/05/17 14:15) Ed Discharge Order (09/05/17 14:40) Aspirin (Aspirin) (09/05/17 15:00) Labs Laboratory Tests Test 09/05/17 11:00 White Blood Count 14.0 TH/MM3 Red Blood Count 4.81 MIL/MM3 Hemoglobin 15.6 GM/DL Hematocrit 44.8 % Mean Corpuscular Volume 93.2 FL Mean Corpuscular Hemoglobin 32.5 PG Mean Corpuscular Hemoglobin Concent 34.9 % Red Cell Distribution Width 13.9 % Platelet Count 232 TH/MM3 Mean Platelet Volume 7.2 FL Neutrophils (%) (Auto) 84.1 % Lymphocytes (%) (Auto) 10.1 % Monocytes (%) (Auto) 3.6 % Eosinophils (%) (Auto) 1.1 % Basophils (%) (Auto) 1.1 % Neutrophils # (Auto) 11.8 TH/MM3 Lymphocytes # (Auto) 1.4 TH/MM3 Monocytes # (Auto) 0.5 TH/MM3 Eosinophils # (Auto) 0.2 TH/MM3 Basophils # (Auto) 0.2 TH/MM3 CBC Comment DIFF FINAL Differential Comment Prothrombin Time 10.2 SEC Prothromb Time International Ratio 1.0 RATIO Activated Partial Thromboplast Time 28.4 SEC Blood Urea Nitrogen 14 MG/DL Creatinine 0.82 MG/DL Random Glucose 111 MG/DL Calcium Level 8.7 MG/DL Magnesium Level 2.2 MG/DL Sodium Level 140 MEQ/L Potassium Level 4.2 MEQ/L Chloride Level 107 MEQ/L Carbon Dioxide Level 26.0 MEQ/L Anion Gap 7 MEQ/L Estimat Glomerular Filtration Rate 96 ML/MIN Troponin I LESS THAN 0.02 NG/ML MDM Medical Decision Making Medical Screen Exam Complete: Yes Emergency Medical Condition: Yes Medical Record Reviewed: Yes Interpretation(s) Twelve-lead EKG was reviewed by me. Normal sinus rhythm, left axis deviation, interventricular conduction delay, nonspecific ST-T wave changes. Heart rate of 66 bpm. Differential Diagnosis Leg claudication syndrome, lower extremity arterial occlusion Narrative Course 11:42 AM blood test results are back. Patient has leukocytosis with left shift. Chemistry is within normal limits. Chest x-ray is negative. Awaiting for CT angiogram of bilateral lower extremities with runoff. Based on the results I will discuss the case with Dr. Leroy from vascular surgery. My suspicion is high for partial or complete arterial occlusion with collaterals. Patient certainly has significant risk factors. 2:40 PM the case was discussed with Dr. Leroy after the CT report was back. He looked at the CAT scan himself and given the fact that patient's symptoms are more as leg claudication he did not recommend hospitalization and emergent surgery. He wants to see the patient in his office in a day or 2. His office will call and contact the patient. He wants the patient to be discharged home on full-strength aspirin and a statin every day. Patient is already on simvastatin. I discussed all this with the patient and he understood. Patient will be discharged home Procedures EKG Prior to Arrival: No Physician Communication Physician Communication Dr. Leroy Diagnosis Primary Impression: Left leg claudication Additional Impression: Needs smoking cessation education Referrals: Otto Leroy MD 2 days Additional Instructions: Please follow-up with Dr. Strong who is a vascular surgeon in a day or 2. His office should contact you to give you the exact date and time for the appointment. His office number is [phone] in case you do not hear back from his office by midday tomorrow. Return to the ER if the condition worsens. You should stop smoking. Take the medication as per the prescription direction. Med/Other Pt SpecificInfo: Prescription(s) given Scripts Aspirin (Aspirin) 325 Mg Tab 325 MG PO DAILY, #30 TAB 0 Refills Prov: Katy Vicente MD 09/05/17 Disposition: 01 DISCHARGE HOME Condition: Stable Katy Vicente MD Sep 05, 2017 10:42
[2017-09-05] MEDS ORDERED: DULO20 PO (10:51)
[2017-09-05] MEDS ORDERED: TRAZ50TA12 PO (10:51)
[2017-09-05] MEDS ORDERED: FLUT1INH7 INH (10:51)
[2017-09-05] MEDS ORDERED: AMLO10TA2 PO (10:51)
[2017-09-05] MEDS ORDERED: SODIUM CHLORIDE 0.9% FLUSH 10 ML FLUSH IVF PRN (11:00)
[2017-09-05 11:13] LABS: AUTOMATED NEUTROPHIL # 11.8 TH/MM3 (1.8-7.7); BASOPHIL # 0.2 TH/MM3 (0-0.2); BASOPHIL % 1.1 % (0.0-2.0); EOSINOPHIL # 0.2 TH/MM3 (0-0.4); EOSINOPHIL % 1.1 % (0.0-4.0); HEMATOCRIT 44.8 % (39.0-51.0); HEMOGLOBIN 15.6 GM/DL (13.0-17.0); LYMPH % 10.1 % (9.0-44.0); LYMPHOCYTE # 1.4 TH/MM3 (1.0-4.8); MEAN CELL VOLUME 93.2 FL (80.0-100.0); MEAN CORPUSCULAR HEMOGLOBIN 32.5 PG (27.0-34.0); MEAN CORPUSCULAR HGB CONC 34.9 % (32.0-36.0); MEAN PLATELET VOLUME 7.2 FL (7.0-11.0); MONO % 3.6 % (0.0-8.0); MONOCYTE # 0.5 TH/MM3 (0-0.9); NEUT % 84.1 % (16.0-70.0); PLATELET COUNT 232 TH/MM3 (150-450); RED BLOOD COUNT 4.81 MIL/MM3 (4.50-5.90); RED CELL DISTRIBUTION WIDTH 13.9 % (11.6-17.2)
[2017-09-05 11:21] LABS: PROTHROMBIN TIME - PATIENT 10.2 SEC (9.8-11.6)
--- NOTE | 2017-09-05 11:27 | RADRPT ---
EXAM DATE/TIME: 09/05/2017 11:03 [facility] COMPARISON: CHEST SINGLE AP, July 26, 2016, 12:05. INDICATIONS : Chest pains. MEDICAL HISTORY : Hypertension. Chronic obstructive pulmonary disease. SURGICAL HISTORY : CABG. ENCOUNTER: Initial ACUITY: 1 day PAIN SCORE: 2/10 LOCATION: Bilateral chest FINDINGS: A single view of the chest demonstrates the lungs to be symmetrically aerated without evidence of mas s, infiltrate or effusion. The cardiomediastinal contours are unremarkable. Osseous structures are intact. Evidence of prior median sternotomy with intact sternal wire sutures. CONCLUSION: The lungs are clear. Erasmo Mya MD on September 05, 2017 at 11:25 Board Certified Radiologist. This report was verified electronically.
[2017-09-05 11:29] LABS: BLOOD UREA NITROGEN 14 MG/DL (7-18); CALCIUM 8.7 MG/DL (8.5-10.1); CHLORIDE 107 MEQ/L (98-107); CREATININE 0.82 MG/DL (0.60-1.30); GLOMERULAR FILTRATION RATE 96 ML/MIN (>89); GLUCOSE,RANDOM 111 MG/DL (74-106); MAGNESIUM 2.2 MG/DL (1.5-2.5); SODIUM (NA) 140 MEQ/L (136-145)
[2017-09-05 11:30] VITALS: BP 141/81; PULSE 68; RESP 16; O2SAT 98
[2017-09-05 11:33] VITALS: BP_SYST 141; BP_SYST 142; BP_DIAS 80; BP_DIAS 81
[2017-09-05 11:33] LABS: TROPONIN I LESS THAN 0.02 NG/ML (0.02-0.05)
[2017-09-05 12:30] VITALS: BP 127/73; PULSE 68; RESP 14; O2SAT 98
[2017-09-05 13:00] VITALS: BP 146/76; PULSE 70; RESP 16; O2SAT 98
--- NOTE | 2017-09-05 13:55 | RADRPT ---
EXAM DATE/TIME: 09/05/2017 12:23 [facility] COMPARISON: CT PULMONARY ANGIOGRAM, July 26, 2016, 13:35. INDICATIONS : Left calf pain for one month IV CONTRAST: 96 cc Omnipaque 350 (iohexol) IV RADIATION DOSE: 96 CTDIvol (mGy) MEDICAL HISTORY : Cardiovascular disease. Hypertension. Chronic obstructive pulmonary disease. Diverticulitis SURGICAL HISTORY : None. ENCOUNTER: Initial ACUITY: 1 month PAIN SCALE: 3/10 LOCATION: Runoff TECHNIQUE: Volumetric scanning was performed using a multi-row detector CT scanner. The data was post processed with a variety of visualization algorithms including full volume maximum intensity projection, multi -planar sliding thin slab reformation, curved planar reformation, and surface rendering techniques. Using automated exposure control and adjustment of the mA and/or kV according to patient size, radiat ion dose was kept as low as reasonably achievable to obtain optimal diagnostic quality images. DICO M format image data is available electronically for review and comparison. FINDINGS: Abdominal aorta: The celiac and SMA origins are widely patent. There is a single renal artery on the left. There is a small accessory on the right. Both the main and the accessory right renal are widely patent. The GODWIN is patent. The infrarenal aorta demonstrates diffuse atherosclerotic plaquing but is normal in calibe r. Pelvis: The common iliac, internal iliac and external iliac circulation demonstrates some fairly diffuse athe rosclerotic plaquing and areas of mild stenosis but is adequate in caliber throughout. Right leg: The common femoral and profunda femoral are widely patent. There is mild atherosclerotic plaquing thr oughout the course of the superficial femoral. There is adequate in caliber throughout. The popliteal is disease but adequate in caliber above and below the level of the knee. Distally, all 3 trifurcati on vessels are patent. Left leg: The common femoral and profunda femoral disease but adequate in caliber. The superficial femoral is p atent. There is abrupt occlusion of the popliteal and its above-knee segment. The popliteal occlusion extends down to the mid aspect of the knee. Distally, all [address] trifur[address] are patent. CT source data: The solid organs of the abdomen are grossly intact. There is no retroperitoneal adenopathy. No free a ir or free fluid is identified. Note is made of a fluid filled iliopsoas bursa around the left hip ai r in CONCLUSION: 1. Scattered atherosclerotic plaquing throughout the aorta and iliac vessels but adequate in flow vinnie n to the level of the groin bilaterally. 2. 3. Left le. Diffuse atherosclerotic plaquing with abrupt short segment occlusion of the distalmost portion of the superficial femoral and above-knee popliteal. This appears to represent acute thrombosis on chron ic disease. The distal trifurcation vessels are patent. 5. 6. Right le. Diseased but adequate inflow and runoff. Esteban Abad MD on September 05, 2017 at 13:35 Board Certified Radiologist. This report was verified electronically.
[2017-09-05] MEDS ORDERED: HEPARIN-D5W 25,000 U/250 ML 250 ML IV PRN (14:15)
[2017-09-05] MEDS ORDERED: HEPARIN SODIUM - IV 10,000 UNITS/10 ML VIAL IV ONE (14:15)
[2017-09-05] MEDS ORDERED: ASPI-183 PO (14:52)
[2017-09-05] MEDS ORDERED: ASPIRIN 325 MG TAB PO ONE (15:00)
[2017-09-05 15:10] VITALS: BP 125/64; PULSE 65; RESP 14; O2SAT 98
[2017-09-05] MEDS ORDERED: HEPARIN SODIUM - IV 10,000 UNITS/10 ML VIAL IV PRN ×2 (20:15)
--- NOTE | 2017-09-05 20:31 | EKG ---
Date Performed: 09/05/2017 Time Performed: 10:56:39 PTAGE: 56 years EKG: Sinus rhythm MODERATE INTRAVENTRICULAR CONDUCTION DELAY ABNORMAL ECG INTERPRETATION BASED ON A DEFAULT AGE OF 40 YEARS PREVIOUS TRACING : 07/26/2016 11.12 Since the previous tracing, no significant change not ed DOCTOR: Isaiah Elder Interpretating Date/Time 09/05/2017 20:30:34
== END 2017-09-05 15:11 | disposition home or self-care (01) ==
LOC: NEPD 10:18
DX: I73.9 Peripheral vascular disease, unspecified (principal); F17.210 Nicotine dependence, cigarettes, uncomplicated; I10 Essential (primary) hypertension; E78.00 Pure hypercholesterolemia, unspecified; J44.9 Chronic obstructive pulmonary disease, unspecified; Z79.899 Other long term (current) drug therapy
CPT/HCPCS: 71045; 75635; 80048; 83735; 84484; 85025; 85610; 85730; 93005; 99285; Q9967

== ENCOUNTER 2017-09-13 10:39 | Day surgery (SDC) | payer OTHER ==
[~2017-09-13] VITALS: Ht 177.8 cm; Wt 66.2 kg
[~2017-09-13 10:39] MED LIST changes: +AMLO10TA2 PO; -AMLO5 PO; +ASPI-183 PO; -AZIT250T3 PO; -Aspirin Chew PO; -CITA20TA4 PO; +DULO20 PO; +FLUT1INH7 INH; -MAGN500T4 PO; -RITA20TA PO; -SYMB160A INH; +TRAZ50TA12 PO
[2017-09-13] MEDS ORDERED: IOHEXOL 350 MG/ML 100 ML BTL (for Cath Lab) OTHER ONE (10:40)
[2017-09-13 12:15] VITALS: BP 133/86; PULSE 68; RESP 16; TEMP 98.1; O2SAT 99
[2017-09-13] MEDS ORDERED: SODIUM BICARBONATE 100 MEQ in D5W 1000 ML IV SCH (12:30)
[2017-09-13] MEDS ORDERED: ECASA81 PO (12:31)
--- NOTE | 2017-09-13 12:42 | PD.VS.PN ---
Pre-operative Note Pre-operative diagnosis: LEFT leg claudication, PAD Planned procedure: Aortogram w/ L LE angiogram possible endovascular intervention Interval History: Pt has been feeling well. No rest pain and no tissue loss. ready for procedure Labs: Hct 45 plt 232 INR 1.0 creatinine 0.8 Blood: none needed Imaging: CTA reviewed Orders: NPO Post-operative destination: DOCU Operative site marked: Yes Consent: Informed consent has been obtained from Kirt Rasheed. I have explained the procedure in detail and discussed the risks, benefits, and potential complications. All questions have been answered. Patient contact information: [phone] Otto Leroy MD September 13, 2017 12:42
[2017-09-13] MEDS ORDERED: MIDAZOLAM HCL 2 MG/2 ML VIAL ONE ×2 (13:10→13:32)
[2017-09-13] MEDS ORDERED: HEPARIN-NS/PF FLUSH BAG 1,000 ML IV FLUSH ONE (13:10)
[2017-09-13] MEDS ORDERED: HEPARIN SODIUM - IV 10,000 UNITS/10 ML VIAL ONE (13:11)
[2017-09-13] MEDS ORDERED: ceFAZolin INJ 1,000 MG VIAL ONE (13:42)
--- NOTE | 2017-09-13 14:07 | HHI.PR ---
cc: Otto Leroy MD Immediate Post Op Note Procedure Date: September 13, 2017 Pre Op Diagnosis: L LE claudication, PAD Post Op Diagnosis: L LE claudication, PAD Surgeon: Otto Leroy Desktop Support Associate(s): none Procedure: 1. Aortogram w/ L LE angiogram 2. L SFA COMPLEX CASE MANAGER/stent (6x100 Zilver PTX) 3. R PROCESS WORKER Angioseal Findings: L distal SFA occlusion successful recanalization and COMPLEX CASE MANAGER/stent 3 vessel runoff Complications: none Specimen(s) removed: none Estimated blood loss: 10mL Anesthesia: MAC Drains: None Patient to: Other (DOCU) Patient Condition: Good Implant/Devices: SEE IMPLANT LOG (if applicable) Date/Time of Procedure: SEE SURGICAL CARE RECORD Otto Leroy MD September 13, 2017 14:07
[2017-09-13 14:11] LABS: CREATININE 0.83 MG/DL (0.60-1.30)
[2017-09-13] MEDS ORDERED: CLOPIDOGREL 75 MG TAB PO ONE (14:15)
--- NOTE | 2017-09-13 14:37 | MP ---
cc: Otto Leroy MD DATE OF OPERATION: 09/13/2017 PREOPERATIVE DIAGNOSIS: Left lower extremity claudication, peripheral vascular disease. POSTOPERATIVE DIAGNOSIS: Left lower extremity claudication, peripheral vascular disease. PROCEDURE PERFORMED: 1. Aortogram with left lower extremity angiograms. 2. Left superficial femoral artery angioplasty and stent with a 6 x 100 Zilver PTX. 3. Right common femoral artery Angio-Seal. ATTENDING SURGEON: Otto Leroy MD ANESTHESIA: Local with sedation. INDICATION: Mr. Rasheed is a 56-year-old gentleman with severe left lower extremity claudication. He has tried conservative management and is taken to the operating room for endovascular therapy. There is no prior catheter-based imaging available for my review. DESCRIPTION OF PROCEDURE: Informed consent was obtained from the patient. He was taken to the operating room and placed supine on the operating room table. An appropriate timeout was taken to ensure the patient's identity, operative site and planned procedure. The administration of 2 grams of Kefzol was initiated prior to stent implantation and will be discontinued after single preoperative dose. Everyone in the room agreed with timeout and we proceeded. His bilateral groins were prepped and draped. The right groin was anesthetized with 1% lidocaine. A 21-gauge micropuncture needle was used to access the right common femoral artery. This was exchanged using Seldinger technique for a micropuncture sheath, through which a 0.035 Glidewire was introduced and micropuncture sheath was exchanged for a 5-Slovenian sheath and a VCF catheter was placed over the wire into the sheath. An aortogram, pelvic arteriogram was obtained. The Glidewire was reintroduced and navigated down to the left common femoral artery and the catheter was advanced over this. A left lower extremity arteriogram was obtained. The patient was systemically heparinized with 5000 units of IV heparin. A 0.035 Orta wire was introduced down to the mid SFA. The VCF catheter and 5-Slovenian sheath were removed and a 6-Slovenian 55 cm Brian sheath was introduced. A CXI catheter was placed over the Orta. The Orta was changed for a CROP PULLER wire. Using the CROP PULLER and CXI, we were able to navigate past the distal SFA and proximal popliteal artery occlusion and into the popliteal artery. This was confirmed angiographically, and the CROP PULLER wire was exchanged for a Orta wire. A 5 x 140 balloon was then used and angioplastied the distal SFA. The completion angiogram showed a residual stenosis, and this was treated with a 6 x 100 self-expanding drug-coated stent. This was post-dilated to 6 mm. Completion angiogram showed excellent result without any recoil extravasation, no flow-limiting dissection and good runoff. The wire, catheter and sheath removed and groin was closed with Angio-Seal. There were no complications. I was present and scrubbed for the entire procedure. INTERPRETATION OF IMAGES: The patient has patent infrarenal aorta, common iliac arteries, hypogastric arteries and external iliac arteries bilaterally. The left common femoral and profunda are patent. The proximal SFA is patent. The distal SFA is occluded and reconstitutes in the mid popliteal segment (P2). There is 3-vessel runoff down to the mid calf. After angioplasty, there was a residual stenosis and this was successfully treated with a stent. MD FELA Evans/RAF , 02:10 PM , 02:35 PM
== END 2017-09-13 16:15 | disposition home or self-care (01) ==
LOC: HDOC 10:39 → HDIC 10:41 → HDOC 16:15
PROVIDERS: ATTEND Surgery
DX: I73.9 Peripheral vascular disease, unspecified (principal)
CPT/HCPCS: 37226; 75625; 75710; 82565; 99152; 99153; C1725; C1751; C1760; C1769; C1874; C1893; G0269; J0690; J1644; J2250; J3010; Q9967

== ENCOUNTER 2017-11-15 15:13 | Inpatient (IN) ==
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
[2017-11-15 15:42] LABS: Baso # (Auto) 0.1 th/mm3 (0.0-0.2); Baso % (Auto) 0.7 % (0.0-2.0); Eos # (Auto) 0.1 th/mm3 (0.0-0.4); Eos % (Auto) 0.7 % (0.0-4.0); Hematocrit 39.8 % (39.0-51.0); Hemoglobin 13.1 gm/dL (13.0-17.0); Lymph # (Auto) 2.7 th/mm3 (1.0-4.8); Lymph % (Auto) 14.1 % (9.0-44.0); Mean Corpuscular HGB Conc 32.8 % (32.0-36.0); Mean Corpuscular Hemoglobin 31.5 pg (27.0-34.0); Mean Corpuscular Volume 96.1 fL (80.0-100.0); Mean Platelet Volume 7.1 fL (7.0-11.0); Mono # (Auto) 0.9 th/mm3 (0.0-0.9); Mono % (Auto) 4.8 % (0.0-8.0); Neut # (Auto) 15.1 th/mm3 (1.8-7.7); Neut % (Auto) 79.7 % (16.0-70.0); Platelet Count 252 th/mm3 (150-450); Red Blood Count 4.14 mil/mm3 (4.50-5.90); Red Cell Distribution Width 13.3 % (11.6-17.2)
--- NOTE | 2017-11-15 15:45 | XR ---
EXAM DATE: 11/15/2017 3:35 PM EDT AGE/SEX: 89 years / Male INDICATIONS: Lacerations to left wrist. CLINICAL DATA: This is the patient's initial encounter. Patient reports that signs and symptoms have been present for 1 day and indicates a pain score of Nonresponsive. MEDICAL/SURGICAL HISTORY: None. None. COMPARISON: No prior exams available for comparison. FINDINGS: Significant soft tissue injury is identified along the volar aspect of the distal forearm. There is no evidence of radiopaque foreign body. Bony structures are intact. CONCLUSION: Soft tissue injury to the left forearm. No evidence of acute fracture or radiopaque foreign body. Electronically signed by: Mathew Holliday MD 11/15/2017 3:44 PM EDT
[2017-11-15] MEDS ORDERED: Etomidate Inj 20 MG/10 ML Ampul IV.PUSH ONE (15:48)
[2017-11-15] MEDS ORDERED: Ketamine Inj 500 MG/10 ML Vial ONE (15:49)
[2017-11-15] MEDS ORDERED: Lidocaine 2% Inj 50 ML Vial ONE (16:02)
[2017-11-15] MEDS ORDERED: Bupivacaine PF 0.5% Inj 30 ML Vial ONE (16:02)
[2017-11-15] MEDS ORDERED: Ketamine Inj 50 MG/5 ML Syringe IV.PUSH ONE (16:10)
--- NOTE | 2017-11-15 17:38 | ECG ---
Date Performed: 11/15/2017 Time Performed: 15:51:14 PTAGE: 89 years EKG: Sinus rhythm POSSIBLE SEPTAL MYOCARDIAL INFARCTION Nonspecific intraventricular conduction delay ABNORMAL ECG NO PREVIOUS TRACING DOCTOR: Jaspal Polo Interpretating Date/Time 11/15/2017 17:36:53
--- NOTE | 2017-11-15 18:17 | P.OP ---
- Preoperative Diagnosis (1) Laceration of left forearm with tendon involvement - Postoperative Diagnosis (1) Laceration of left forearm with tendon involvement Date of procedure: 11/15/17 Procedure: exploration, wash, debridement and repair lacerations, flexor digitorum profundus muscle and extensor pollicis brevis tendon left forearm Anesthesia: GETA Surgeon: Los Randall MD Estimated blood loss (mL): 10 Tourniquet time (min): 35 Pathology: none sent Operation and Findings: multiple laceration over the volar aspect and radial aspect of the mid/distal forearm laceration of palmaris longus tendon with loss of tendon substance laceration flexor digitorum profundus muscle little finger laceration of the extensor pollicis brevis tendon intact radial and ulnar artery intact median and ulnar nerves
[2017-11-15] MEDS ORDERED: fentaNYL Citrate Inj 100 MCG/2 ML Ampul ONE (18:25)
[2017-11-15] MEDS ORDERED: Lidocaine PF 1% Inj 5 ML Syringe INFILTRATN ONE (18:43)
[2017-11-15] MEDS ORDERED: Succinylcholine Inj 200 MG/10 ML Vial IV.PUSH ONE (18:43)
[2017-11-15] MEDS ORDERED: Neomycin/Polymyxin G.U. Irrigant 1 ML Ampul IRRIGATION ONE (18:48)
--- NOTE | 2017-11-15 18:49 | MB ---
cc: Los Randall MD DATE: 11/15/2017 REASON FOR CONSULTATION Laceration, left forearm. HISTORY OF PRESENT ILLNESS: The patient known as Anupam, brought in as a trauma by the EMS as a trauma-alert, where he was found in the car lethargic. Apparently, he had cut his wrist this afternoon. The patient lost about 2 liters of blood at the scene. He had multiple transfusions in the ED to revive him. By the time I saw the patient, the patient was conscious and alert and was responding to oral commands. The patient states he tried to cut himself this afternoon with a knife. He is right hand dominant. Denies any numbness. Complains of bleeding from the region. PAST MEDICAL HISTORY: Reviewed. He has a history of hypertension. PHYSICAL EXAMINATION: GENERAL: The patient is alert, oriented x 3. EXTREMITIES: Examination of left upper extremity reveals multiple lacerations over the volar and radial aspect of the distal and mid forearm, with exposed tendons and muscles. Oozing from the region noted. He has palpable radial pulse. He has intact sensation in both median and ulnar nerve distribution. He has intact flexion and extension of the fingers. IMAGING: X-rays show soft tissue defect over the volar/radial aspect of the mid and distal forearm. ASSESSMENT: The patient around 62-year-old, with multiple lacerations of the left forearm, with involvement of the tendon and questionable involvement of the nerves and artery. PLAN: Will be to take the patient emergently for exploration and repair of tendons, repair of nerve and artery. The patient was explained the risks and benefits of the procedure and we will take the patient emergently for the same. Los Randall MD SE/JACOB , 06:32 PM , 06:47 PM
--- NOTE | 2017-11-15 18:53 | MP ---
cc: Los Randall MD, Srikanth MD DATE OF OPERATION: 11/15/2017 PREOPERATIVE DIAGNOSIS: Multiple lacerations left forearm with tendon involvement. POSTOPERATIVE DIAGNOSIS: Multiple lacerations left forearm, laceration extensor pollicis brevis tendon, laceration flexor digitorum profundus little finger and laceration palmaris longus, left forearm. PROCEDURE: Exploration, wash, debridement repair extensor pollicis brevis tendon, flexor digitorum profundus muscle little finger and multiple lacerations, left forearm. SURGEON: Los Randall MD ANESTHESIA: General. ESTIMATED BLOOD LOSS: 10 mL TOURNIQUET TIME: 35 minutes at 250 mmHg. DISPOSITION: To PACU stable. INDICATIONS: The patient was brought into the ED as an emergency known as [id number]. He was brought in by the EMS as a trauma alert and was found in his car lethargic and apparently cut his left wrist in his car around this afternoon. The patient was found to have multiple lacerations over the left forearm. The patient also had about 2 liters of blood loss at the scene and he had 4 units of blood and 2 units of FFP transfused in the ER to stabilize him and he was taken emergently for exploration and possible repair of tendons, possible repair of nerve and artery left forearm. The patient was explained the risks and benefits of the procedure as he was conscious and alert at the time of taking the consent, PROCEDURE IN DETAIL The patient was brought to the operating room. Under general anesthesia, the left upper extremity was sterilely prepped and draped. After limb exsanguination, tourniquet was inflated to 250 mmHg. Intraoperative findings on exploration included multiple transverse cuts involving the volar aspect of the distal forearm and radial aspect of the mid to distal forearm with exposed and loss of palmaris longus tendon with devitalized 1-2 cm portion of the distal stump. There was also evidence of laceration involving the extensor pollicis brevis tendon over the mid forearm on the radial aspect. laceration of the flexor digitorum profundus muscle little finger. The radial and ulnar artery were found to be intact. The median and ulnar artery were found to be intact. The patient did have a laceration of the veins which was tied with 3-0 silk. He also had a laceration of the flexor digitorum profundus muscle in the mid forearm. Thorough wash of the wound was carried out using normal saline mixed with irrigant. About a liter of solution was used. debridment of the tendon edges were carried out. The extensor pollicis brevis tendon was then approximated using 3-0 looped Supramid stitch in a modified tsuge fashion, approximating the tendon. Four strands were crossing the repair site. The palmaris longus tendon was found to be completely lacerated and 2 cm of tendon was then excised. Because of the gap in the tendon, the palmaris longus was not repaired. The fascia was incised both proximally and distally and the exposed muscle of the flexor digitorum profundus to the little finger was approximated using 3-0 Ethibond in a [id number]-[id number] fashion. Tourniquet was deflated at 35 minutes. Bleeding points were cauterized with bipolar cautery. The skin flaps were then approximated using deborah. He had dopplerable radial and ulnar artery pulses. He also had good capillary flow of the fingertips. Xeroform, bacitracin dressing applied. Bulky hand dressing was applied which was held in place by Sof-Rol and a thumb spica splint was applied on the volar aspect leaving the tips of the fingers free. The patient was recovered and sent to recovery in stable condition. The plan will be to keep the limb in elevation and watch for compartment syndrome. Change the dressing tomorrow. Los Randall MD SE/ , 06:25 PM , 06:52 PM ANNIE
[2017-11-15] MEDS ORDERED: Morphine Inj 4 MG/ML Vial ONE (18:56)
--- NOTE | 2017-11-15 19:57 | MH ---
cc: Han Bryant MD, Joel L MD DATE OF ADMISSION: 11/15/2017 HISTORY OF PRESENT ILLNESS: This is a patient who was brought in as a trauma alert after being found in the car lethargic. By reports the patient had 2 liters of blood around him on the scene and a wound to his wrist. The patient was brought in on backboard lethargic, arousable. He had no complaint. When asked what happened, he stated he cut his wrist. He stated he was trying to kill himself, that he was depressed secondary to his medical condition and job situation. The patient denied taking any illicit drugs. PAST MEDICAL HISTORY: Significant for hypertension as well as coronary artery disease. He has had a CABG approximately 3 years prior. ALLERGIES: HE HAS NO KNOWN DRUG ALLERGIES. FAMILY HISTORY: Noncontributory. REVIEW OF SYSTEMS: Significant for above. PHYSICAL EXAMINATION: HEENT: Pupils are equal and reactive. NECK: Trachea is midline without JVD. CHEST: Respirations clear. CARDIOVASCULAR: Regular. GASTROINTESTINAL: Soft, nontender. MUSCULOSKELETAL: The patient has a deep laceration over his left wrist with exposed muscle on the medial aspect and exposed tendon. He has a superficial laceration on his right wrist. There is no active bleeding. He did have palpable pulses radially.: NEUROLOGIC: Nonfocal. IMAGING STUDIES: X-ray of his left wrist was negative for fractures. ASSESSMENT: This is a patient who sustained a wound to his left wrist after a suicide attempt. There does not appear to be any vascular injury. A hand surgeon was contacted. The patient will be taken to the operating room for an exploration of his wound. He will be admitted to the floor following this. We will provide pain management, monitor neurovascular status and hemodynamics. MD LEONA Blackwood/ , 07:38 PM , 07:56 PM
[2017-11-15] MEDS ORDERED: traZODone 50 MG Tablet PO SCH (23:00)
[2017-11-16] MEDS ORDERED: Dextrose 50% in Water 50 ML Vial IV.PUSH PRN (05:42)
[2017-11-16] MEDS: Senna/Docusate Sodium 8.6/50 MG Tablet PO SCH ×2 (08:39→20:17)
[2017-11-16] MEDS: Insulin NovoLOG Aspart Correctional Sugar Inj SQ SCH ×3 (08:40→16:47)
[2017-11-16 09:27] LABS: Activated Partial Thrombo Time 27.5 sec (24.3-30.1); Hematocrit 40.2 % (39.0-51.0); Hemoglobin 13.8 gm/dL (13.0-17.0); INR 1.1 Ratio; Lymph # (Auto) 1.5 th/mm3 (1.0-4.8); Lymph % (Auto) 9.8 % (9.0-44.0); Mean Corpuscular HGB Conc 34.4 % (32.0-36.0); Mean Corpuscular Hemoglobin 30.7 pg (27.0-34.0); Mean Corpuscular Volume 89.1 fL (80.0-100.0); Mean Platelet Volume 7.5 fL (7.0-11.0); Mono # (Auto) 0.9 th/mm3 (0.0-0.9); Mono % (Auto) 6.2 % (0.0-8.0); Neut # (Auto) 12.6 th/mm3 (1.8-7.7); Platelet Count 165 th/mm3 (150-450); Prothrombin Time 10.8 sec (9.8-11.6); Red Blood Count 4.51 mil/mm3 (4.50-5.90); Red Cell Distribution Width 15.8 % (11.6-17.2)
[2017-11-16 09:48] LABS: Calcium 8.2 mg/dL (8.5-10.1)
[2017-11-16 10:02] LABS: Potassium 3.8 meq/L (3.5-5.1)
--- NOTE | 2017-11-16 13:36 | P.CONPSY ---
Provisional Diagnosis Admission Date: November 15, 2017 15:26 Mcallen I.: Major depressive disorder, recurrent, severe, without psychosis, ADHD, anxiety Mcallen II.: Deferred History of Present Illness Service: Medicine services Primary Care Provider: UNKNOWN History of Present Illness: The patient is a 57 year-old man, domiciled in [place] with his , he has 2 kids, employed in both the market, with psychiatric history of major depressive disorder, ADHD, anxiety, 1 previous psychiatric hospitalization about 6 months ago, one previous suicide attempt by overdosing, the patient is on Ativan 1 mg 3 times daily, Cymbalta 30 mg daily, medical history of CAD, COPD, hypertension, who was brought in as a trauma alert after being found in the car lethargic. By reports the patient had 2 liters of blood around him on the scene and a wound to hi m wrist.The patient was brought in on backboard lethargic, arousable. He had no complaint. When asked what happened , he stated he cut his wrist. He stated he was trying to kill himself, that he was depressed secondary to his medical condition and job situation. The patient denied takinga ny illicit drugs. Consulted to psychiatry to addressed suicide attempt. Psychiatric evaluation today find a patient that is calm, cooperative, pleasant. The patient is open to speak about recent suicidal attempt. The patient reports that he has been having conflicts with his family, issues at work as well as economical stress. He says that as a result of this stress he has been feeling depressed, hopeless, helpless, no enjoying usual enjoyable activities, feeling pessimistic, detach, having suicidal thoughts. Yesterday he was so disappointed of having to go to work and was feeling so depressed that just right before going to work he decided to cut himself and bleeding today. The patient reports that he now see the event as a stupid and he regretted, "but that does not change my emotions and how I feel in general". He reports that about 6 months ago he was feeling in a similar way and he overdosed to commit suicide and ended up admitted in psychiatry. He was a started in the Cymbalta and Ativan I has been doing better, but the level of distress increased and he decompensated. At this moment the patient denies suicidal enemas ideation, he denies visual and auditory hallucinations. He says that he is committed to continue his psychiatric treatment, to be admitted if needed. Is fully oriented 3, no attention deficit, no filtration of consciousness. The patient reports occasional use of alcohol," almost every day, but no more than 2 cups", denies the use of illegal drugs such as cocaine, cannabis, amphetamines, heroin and others. Review of Systems Constitutional: Reports anorexia Cardiovascular: Reports chest pain Respiratory: Reports change in phlegm color Gastrointestinal: Reports abdominal pain Genitourinary: Reports blood in semen Musculoskeletal: Reports abnormal walking Neurologic: Reports abnormal hearing Psychiatric: Reports depression, Reports thoughts of hurting/killing yourself Endocrine: Denies cold intolerance, Denies excessive sweating, Denies flushing, Denies heat intolerance, Denies increased hunger, Denies increased thirst, Denies increased urination, Denies rapid, pounding, or irregular heartbeat, Denies other PMFSH - History History Provided By: Patient - Medical History Medical History: Medical History (Last Reviewed 11/16/17 @ 10:58 by Adry Segal PT) COPD (chronic obstructive pulmonary disease) Cardiovascular disease ETOH abuse HTN (hypertension) Smoker Suicidal behavior with attempted self-injury - Surgical History Surgical History: Surgical History (Last Reviewed 11/16/17 @ 09:42 by Maude Weinstein) Status post double vessel coronary artery bypass Stented coronary artery - Tobacco History Second Hand Smoke Exposure: No Tobacco Use In Past 30 Days: Yes Smoking Status: Current every day smoker Tobacco Type: Cigarettes - Alcohol History How Often Do You Have a Drink Containing Alcohol: 4 or more times a week - Substance Use History Substance History: No History of Abuse - Travel History Recent Travel in the [facility] Within the Last 8 Weeks: No Recent Travel Out of the Country Within the Last 8 Weeks: No Medications and Allergies Active Medications: Active Medications Clonazepam (Klonopin) 0.5 mg PO Q8HR DEIDRA Dextrose (D50w Vial) 50 ml IV.PUSH UNSCH PRN PRN Reason: PER HYPOGLYCEMIA PROTOCOL Duloxetine HCl (Cymbalta) 30 mg PO DAILY DEIDRA Enalaprilat (Vasotec Inj) 1.25 mg IV.PUSH Q4H PRN PRN Reason: SBP 160 OR > Last Admin: 11/15/17 23:16 Dose: 1.25 mg Glucagon (Glucagon Inj) 1 mg OTHER PRN PRN PRN Reason: for Hypoglycemia Protocol Insulin Aspart (Novolog Insulin Suppl Scale Inj) 0 unit SQ ACHS [facility]; Protocol Last Admin: 11/16/17 11:34 Dose: Not Given Miscellaneous Information ([facility]) 1 each OTHER UNSCH PRN PRN Reason: SEE LABEL COMMENTS Stop: 11/16/17 19:33 Ondansetron HCl (Zofran Inj) 4 mg IV.PUSH Q6HR PRN PRN Reason: NAUSEA Oxycodone/Acetaminophen (Percocet 5/325 Mg) 1 tab PO Q4HR PRN PRN Reason: PAIN SCALE 3-5 Oxycodone/Acetaminophen (Percocet 5/325 Mg) 2 tab PO Q4HR PRN PRN Reason: PAIN SCALE 6-10 Last Admin: 11/16/17 11:02 Dose: 2 tab Pantoprazole Sodium (Protonix) 40 mg PO DAILY [facility] Last Admin: 11/16/17 08:40 Dose: 40 mg Senna/Docusate Sodium (Namita-Colace) 1 tab PO BID [facility] Last Admin: 11/16/17 08:39 Dose: 1 tab Allergies Allergy/AdvReac Type Severity Reaction Status Date / Time No Known Allergies Allergy Verified 11/16/17 00:51 Home Medications Medication Instructions Recorded Confirmed Type Coreg BID 11/16/17 History Cymbalta DAILY 11/16/17 History Norvasc DAILY 11/16/17 History Plavix DAILY 11/16/17 History lorazepam 2 mg PO BID 11/16/17 History simvastatin HS 11/16/17 History trazodone PO HS 11/16/17 History Exam Vital signs: Vital Signs 11/15/17 18:14 11/15/17 18:30 11/15/17 18:45 Temperature 97.6 F Pulse Rate 79 74 71 Respiratory Rate 15 18 17 Blood Pressure 176/75 H 169/77 H 168/72 H Pulse Oximetry 100 100 100 11/15/17 19:00 11/15/17 19:15 11/15/17 19:30 Temperature Pulse Rate 64 64 59 L Respiratory Rate 15 15 16 Blood Pressure 143/65 H 133/65 121/56 L Pulse Oximetry 100 100 97 11/15/17 20:01 11/15/17 20:44 11/15/17 21:20 Temperature 98 F Pulse Rate 59 L 67 Respiratory Rate 16 17 Blood Pressure 128/56 L 175/104 H Pulse Oximetry 98 99 99 11/15/17 23:59 11/16/17 00:00 11/16/17 04:00 Temperature 98.1 F 98.1 F Pulse Rate 55 L 88 85 Respiratory Rate 17 17 Blood Pressure 177/86 H 164/72 H Pulse Oximetry 98 98 11/16/17 04:24 11/16/17 08:00 Temperature 97.7 F Pulse Rate 51 L 60 Respiratory Rate 16 Blood Pressure 162/96 H Pulse Oximetry 96 Intake & Output 11/15/17 11/16/17 11/16/17 18:59 06:59 18:59 Intake Total 1000 / 1000 240 / 240 Output Total 400 / 400 Balance 990 / 990 -160 / -160 Weight 70.6 kg Intake: Oral 240 / 240 Anesthesia Amount 1000 / 1000 Output: Urine 400 / 400 Estimated Blood Loss Other: # Voids 1 Narrative: No tremors, no EPS, no psychomotor agitation retardation, no gait disturbance Mental Status Examination Appearance: Appropriate Consciousness: Alert Orientation: x4 Motor Activity: Normal gait Speech: Unremarkable Language: Adequate Fund of Knowledge: Adequate Attention and Concentration: Adequate Memory: Unremarkable Mood: Sad Affect: Sad Thought Process & Associations: Intact Thought Content: Appropriate Hallucination Type: None Suicidal Ideation: Yes Suicidal Plan: No Suicidal Intention: No Homicidal Ideation: No Homicidal Plan: No Homicidal Intention: No Insight: Adequate Assessment and Plan - Plan Plan: Estimated LOS: [] days On psychiatric evaluation today the patient is calm, cooperative, reports that has been feeling depressed, anhedonic, with increased hopelessness, helplessness , no enjoying life, generally pessimism and suicidal thoughts in the context of family problems, difficulties with his job and economical struggle. The patient states that yesterday he was feeling so depressed that he had a strong desire to commit suicide and for this reason he cut himself with suicidal intentions. This is a patient with psychiatric history of depression, he tried to commit suicide 6 months ago by overdosing, was hospitalized for about 2 weeks. The patient is acutely depressed, given his quite dangerous suicidal attempt he has an elevated risk of danger to self, and is to be admitted in psychiatry for stabilization and safety. I will restart and increase Cymbalta to 30 mg daily, will substitute Ativan 1 mg 3 times daily for clonazepam 0.5 mg daily for anxiety. Transfer to psychiatry was medically stable. Brief supportive psychotherapy provided Justification for Continued Inpatient Stay: The patient needs psychiatric hospitalization for stabilization
--- NOTE | 2017-11-16 14:22 | P.PNGS ---
<Pam Braswell M - Last Filed: 11/16/17 19:07> Subjective Interval history: OOB in chair Pain controlled Physical Exam Vital signs: Vital Signs 11/15/17 18:14 11/15/17 18:30 11/15/17 18:45 Temperature 97.6 F Pulse Rate 79 74 71 Respiratory Rate 15 18 17 Blood Pressure 176/75 H 169/77 H 168/72 H Pulse Oximetry 100 100 100 11/15/17 19:00 11/15/17 19:15 11/15/17 19:30 Temperature Pulse Rate 64 64 59 L Respiratory Rate 15 15 16 Blood Pressure 143/65 H 133/65 121/56 L Pulse Oximetry 100 100 97 11/15/17 20:01 11/15/17 20:44 11/15/17 21:20 Temperature 98 F Pulse Rate 59 L 67 Respiratory Rate 16 17 Blood Pressure 128/56 L 175/104 H Pulse Oximetry 98 99 99 11/15/17 23:59 11/16/17 00:00 11/16/17 04:00 Temperature 98.1 F 98.1 F Pulse Rate 55 L 88 85 Respiratory Rate 17 17 Blood Pressure 177/86 H 164/72 H Pulse Oximetry 98 98 11/16/17 04:24 11/16/17 08:00 11/16/17 12:00 Temperature 97.7 F 98 F Pulse Rate 51 L 60 59 L Respiratory Rate 16 17 Blood Pressure 162/96 H 143/66 H Pulse Oximetry 96 97 Intake & Output 11/15/17 11/16/17 11/16/17 18:59 06:59 18:59 Intake Total 1000 / 1000 240 / 240 Output Total 400 / 400 Balance 990 / 990 -160 / -160 Weight 70.6 kg Intake: Oral 240 / 240 Anesthesia Amount 1000 / 1000 Output: Urine 400 / 400 Estimated Blood Loss Other: # Voids 1 Narrative: GENERAL: 57 year old well-nourished male OOB in chair, sitter at bedside. SKIN: Warm and dry. HEAD:Normocephalic. ENT: No nasal bleeding or discharge. Mucous membranes pink and moist. NECK: Trachea midline. No JVD. CARDIOVASCULAR: Regular rate and rhythm. RESPIRATORY: No accessory muscle use. Clear to auscultation. Breath sounds equal bilaterally. GASTROINTESTINAL: Abdomen soft, non-tender, nondistended. + BS MUSCULOSKELETAL: Extremities without cyanosis, or edema. LUE soft splint in place. RIGHT wrist superficial lac [employer]. MAEW, + perfused NEUROLOGICAL: Awake and alert. Normal speech. Assessment and Plan - Plan [place]: Self-inflicted lacerations to bilateral wrists. Found lethargic in his car with 2L of blood loss noted on scene. Takes Plavix at home. INJURIES: LEFT forearm lac with tendon involvement RIGHT wrist superficial lac PMHx: HTN, CAD, CABG, COPD, suicide hx, tobacco use 11/15: Exploration, wash, debridement and repair lacerations, flexor digitorum profundus muscle and extensor pollicis brevis tendon left forearm LEFT forearm lac with tendon involvement, RIGHT wrist superficial lac Hand sx consulted 11/15: Exploration, wash, debridement and repair lacerations, flexor digitorum profundus muscle and extensor pollicis brevis tendon left forearm Pain control Bowel regimen Suicide attempt Psych consulted Stern Act 1:1 Sitter DC to inpatient Psych when medically stable Plan of care discussed with patient at bedside. Collaborating Trauma MD agrees with plan. Case management consulted to assist with discharge planning. Plan to DC to inpatient Med/Psych when clear per Hand sx. <Quan Martinez S - Last Filed: 11/20/17 13:34> Assessment and Plan - Plan Attending statement Patient seen and examined left wrist in dressing defer to hand recs neuro vasc exams stern act defer to psy - Attending Attestation The exam, history, and the medical decision-making described in the above note were completed with the assistance of the mid-level provider. I reviewed and agree with the findings presented. I attest that I had a [id number] encounter with the patient on the same day, and personally performed and documented my assessment and findings in the medical record.
[2017-11-16] MEDS: clonazePAM 0.5 MG Tablet PO SCH ×2 (15:18→22:00)
--- NOTE | 2017-11-16 18:13 | P.PN ---
Subjective Interval history: denies any pain denies any numbness complaint with limb elevation Physical Exam Vital signs: Vital Signs 11/15/17 18:14 11/15/17 18:30 11/15/17 18:45 Temperature 97.6 F Pulse Rate 79 74 71 Respiratory Rate 15 18 17 Blood Pressure 176/75 H 169/77 H 168/72 H Pulse Oximetry 100 100 100 11/15/17 19:00 11/15/17 19:15 11/15/17 19:30 Temperature Pulse Rate 64 64 59 L Respiratory Rate 15 15 16 Blood Pressure 143/65 H 133/65 121/56 L Pulse Oximetry 100 100 97 11/15/17 20:01 11/15/17 20:44 11/15/17 21:20 Temperature 98 F Pulse Rate 59 L 67 Respiratory Rate 16 17 Blood Pressure 128/56 L 175/104 H Pulse Oximetry 98 99 99 11/15/17 23:59 11/16/17 00:00 11/16/17 04:00 Temperature 98.1 F 98.1 F Pulse Rate 55 L 88 85 Respiratory Rate 17 17 Blood Pressure 177/86 H 164/72 H Pulse Oximetry 98 98 11/16/17 04:24 11/16/17 08:00 11/16/17 12:00 Temperature 97.7 F 98 F Pulse Rate 51 L 60 59 L Respiratory Rate 16 17 Blood Pressure 162/96 H 143/66 H Pulse Oximetry 96 97 11/16/17 16:00 Temperature 97.8 F Pulse Rate 55 L Respiratory Rate 18 Blood Pressure 138/62 Pulse Oximetry 98 Intake & Output 11/15/17 11/16/17 11/16/17 18:59 06:59 18:59 Intake Total 1000 / 1000 240 / 240 Output Total 400 / 400 Balance 990 / 990 -160 / -160 Weight 70.6 kg Intake: Oral 240 / 240 Anesthesia Amount 1000 / 1000 Output: Urine 400 / 400 Estimated Blood Loss Other: # Voids 1 Narrative: examination of left upper extremity: intact dressing and splint in place intact distal circulation intact distal sensation able to make a fist no clinical signs of compartment syndrome Results - Labs CBC & Chem 7: 11/16/17 06:25 11/16/17 06:25 Laboratory Results - last 24 hr 11/15/17 11/16/17 11/16/17 15:33 06:25 06:25 WBC 15.0 H RBC 4.51 Hgb 13.8 Hct 40.2 MCV 89.1 D MCH 30.7 MCHC 34.4 RDW 15.8 D Plt Count 165 D MPV 7.5 Neut % (Auto) 84.0 H Lymph % (Auto) 9.8 Rich % (Auto) 6.2 Eos % (Auto) 0.0 Baso % (Auto) 0.0 Neut # (Auto) 12.6 H Lymph # (Auto) 1.5 Rich # (Auto) 0.9 Eos # (Auto) 0.0 Baso # (Auto) 0.0 WBC Differential . Differential Comment Auto diff final PT 10.8 INR 1.1 APTT 27.5 Sodium Potassium Chloride Carbon Dioxide Anion Gap BUN Creatinine Estimated GFR POC Glucose Random Glucose Calcium Blood Bank Comment 11/16/17 11/16/17 11/16/17 06:25 07:46 11:33 WBC RBC Hgb Hct MCV MCH MCHC RDW Plt Count MPV Neut % (Auto) Lymph % (Auto) Rich % (Auto) Eos % (Auto) Baso % (Auto) Neut # (Auto) Lymph # (Auto) Rich # (Auto) Eos # (Auto) Baso # (Auto) WBC Differential Differential Comment PT INR APTT Sodium 140 Potassium 3.8 Chloride 107 Carbon Dioxide 24.0 Anion Gap 9 BUN 19 H Creatinine 0.92 Estimated GFR 71 L POC Glucose 161 H 139 H Random Glucose 124 H Calcium 8.2 L Blood Bank Comment 11/16/17 16:44 WBC RBC Hgb Hct MCV MCH MCHC RDW Plt Count MPV Neut % (Auto) Lymph % (Auto) Rich % (Auto) Eos % (Auto) Baso % (Auto) Neut # (Auto) Lymph # (Auto) Rich # (Auto) Eos # (Auto) Baso # (Auto) WBC Differential Differential Comment PT INR APTT Sodium Potassium Chloride Carbon Dioxide Anion Gap BUN Creatinine Estimated GFR POC Glucose 125 H Random Glucose Calcium Blood Bank Comment Assessment and Plan - Assessment (1) Laceration of left forearm with tendon involvement Code(s): S51.812A - Laceration without foreign body of left forearm, initial encounter; S56.922A - Laceration of unspecified muscles, fascia and tendons at forearm level, left arm, initial encounter Status: Acute Plan: continue with limb elevation and finger range of motion exercises watch for distal circulation will change dressing and splint tomorrow.
[2017-11-17] MEDS: clonazePAM 0.5 MG Tablet PO SCH ×2 (06:04→16:08)
[2017-11-17] MEDS: Insulin NovoLOG Aspart Correctional Sugar Inj SQ SCH ×4 (06:04→17:38)
[2017-11-17] MEDS: Senna/Docusate Sodium 8.6/50 MG Tablet PO SCH (08:57)
--- NOTE | 2017-11-17 11:37 | P.DS ---
Date of admission: 11/15/17 15:26 Primary care physician: UNKNOWN Brief History from admission: Suicide attempt DS: Diagnosis - Discharge Diagnosis (1) Suicide attempt Status: Acute (2) Laceration of left wrist with complication Status: Acute (3) Laceration of left forearm with tendon involvement Status: Acute DS: Summary Hospital Course: STILL[place]: Self-inflicted lacerations to bilateral wrists. Found lethargic in his car with 2L of blood loss noted on scene. Takes Plavix at home. INJURIES: LEFT forearm lac with tendon involvement RIGHT wrist superficial lac PMHx: HTN, CAD, CABG, COPD, suicide hx, tobacco use 11/15: Exploration, wash, debridement and repair lacerations, flexor digitorum profundus muscle and extensor pollicis brevis tendon left forearm LEFT forearm lac with tendon involvement, RIGHT wrist superficial lac Hand sx consulted 11/15: Exploration, wash, debridement and repair lacerations, flexor digitorum profundus muscle and extensor pollicis brevis tendon left forearm Hand surgery plans to change dressing today Pain controlled Bowel regimen Hold Plavix for now until cleared by hand surgery Suicide attempt Psych consulted [facility] 1:1 Sitter Recommends DC to inpatient Psych when medically stable Plan of care discussed with patient at bedside. Collaborating Trauma MD agrees with plan. Case management consulted to assist with discharge planning. Clear to discharge to inpatient med/psych if okay with hand surgery. - Time Spent with Patient Total time spent providing and/or coordinating discharge services: - Quality: VTE Deep Vein Thrombosis/Pulmonary Embolism Present on Admission: No Exam Vital signs: Vital Signs 11/16/17 12:00 11/16/17 16:00 11/16/17 20:00 Temperature 98 F 97.8 F 98.6 F Pulse Rate 59 L 55 L 62 Respiratory Rate 17 18 18 Blood Pressure 143/66 H 138/62 175/84 H Pulse Oximetry 97 98 98 11/17/17 00:00 11/17/17 04:00 11/17/17 08:00 Temperature 97.8 F 97.9 F 97.8 F Pulse Rate 49 L 54 L 56 L Respiratory Rate 20 18 16 Blood Pressure 143/75 H 178/84 H 158/77 H Pulse Oximetry 99 97 96 Intake & Output 11/16/17 11/17/17 11/17/17 18:59 06:59 18:59 Intake Total 1200 / 1200 480 / 480 Balance 1200 / 1200 480 / 480 Weight 70.9 kg Intake: Oral 1200 / 1200 480 / 480 Other: # Voids 7 4 # Bowel Movements 0 Results Procedures completed during hospitalization: 11/15: Exploration, wash, debridement and repair lacerations, flexor digitorum profundus muscle and extensor pollicis brevis tendon left forearm Labs on day of discharge: Labs from last 24 hours 11/17/17 11/16/17 11/16/17 08:56 20:20 16:44 POC Glucose 99 150 H 125 H Blood Type Antibody Screen MTS Gel Crossmatch Blood Bank Comment 11/16/17 11/15/17 11/15/17 11:33 15:33 15:20 POC Glucose 139 H Blood Type A Negative Antibody Screen Negative MTS Gel Crossmatch See Detail Blood Bank Comment - Impressions ITS Impressions Wrist X-Ray 11/15/17 00:00 CONCLUSION: Soft tissue injury to the left forearm. No evidence of acute fracture or radiopaque foreign body. Discharge Plan - Discharge Disposition Patient Disposition: 63 Disc To [facility] - Discharge Condition Condition: Stable - Discharge Order Discharge Orders: Discharge Order (Routine); Ordered 11/17/17 Ordered By: Pam Braswell - Discharge Details Anticipated Discharge Date: 11/15/17 - Physicians Team Primary Care Provider: UNKNOWN, Attending Provider: Han Bryant Other Providers: Elver Kirk MD ; [employer] ; Ernesto Avendano MD ; Chan Carranza MD ; Seymour Brown MD ; [employer] ; Han Bryant MD ; Martha Patten ARNP ; Quan Martinez MD ; Melissa Church MD ; Jose Goldstein MD ; Pam Braswell ARNP
--- NOTE | 2017-11-17 16:37 | P.PN ---
Subjective Interval history: no pain no numbness no fever Physical Exam Vital signs: Vital Signs 11/16/17 20:00 11/17/17 00:00 11/17/17 04:00 Temperature 98.6 F 97.8 F 97.9 F Pulse Rate 62 49 L 54 L Respiratory Rate 18 20 18 Blood Pressure 175/84 H 143/75 H 178/84 H Pulse Oximetry 98 99 97 11/17/17 08:00 11/17/17 12:00 Temperature 97.8 F 98.2 F Pulse Rate 56 L 57 L Respiratory Rate 16 17 Blood Pressure 158/77 H 154/81 H Pulse Oximetry 96 96 Intake & Output 11/16/17 11/17/17 11/17/17 18:59 06:59 18:59 Intake Total 1200 / 1200 480 / 480 Balance 1200 / 1200 480 / 480 Weight 70.9 kg Intake: Oral 1200 / 1200 480 / 480 Other: # Voids 7 4 # Bowel Movements 0 Narrative: examination of left upper extremity: intact dressing and splint slight skin maceration noted no signs of infection intact distal sensation intact distal circulation able to make a full fist intact extension Results - Labs CBC & Chem 7: 11/16/17 06:25 11/16/17 06:25 Laboratory Results - last 24 hr 11/15/17 11/15/17 11/16/17 15:20 15:33 16:44 POC Glucose 125 H Blood Type A Negative Antibody Screen Negative MTS Gel Crossmatch See Detail Blood Bank Comment 11/16/17 11/17/17 11/17/17 20:20 08:56 12:53 POC Glucose 150 H 99 92 Blood Type Antibody Screen MTS Gel Crossmatch Blood Bank Comment - Procedures 11/15: Exploration, wash, debridement and repair lacerations, flexor digitorum profundus muscle and extensor pollicis brevis tendon left forearm Assessment and Plan - Assessment (1) Laceration of left forearm with tendon involvement Code(s): S51.812A - Laceration without foreign body of left forearm, initial encounter; S56.922A - Laceration of unspecified muscles, fascia and tendons at forearm level, left arm, initial encounter Status: Acute - Plan laceration site cleaned with alcohol wipes adaptic and dry dressing applied new short arm thumb spica volar splint applied cleared for discharge from hand surgery follow up in office in one week time
== END 2017-11-17 18:44 ==
LOC: NEPI 15:13 → MERGE 15:26 → NEDA 15:26 → EDBD 15:26 → N07 16:15
PROVIDERS: ADMIT Surgery; ATTEND Surgery

== ENCOUNTER 2017-11-17 18:50 | Inpatient (IN) ==
[2017-11-17] MEDS ORDERED: Aluminum/Magnesium/Simethacone Susp 30 ML UDC PO PRN (21:35)
[2017-11-17] MEDS ORDERED: Bisacodyl 10 MG Supp RECTAL PRN (21:35)
[2017-11-18 09:18] LABS: Anion Gap 9 meq/L (5-15); Blood Urea Nitrogen 16 mg/dL (7-18); Carbon Dioxide 27.2 meq/L (21.0-32.0); Chloride 107 meq/L (98-107); Glomerular Filtration Rate Greater Than 89 mL/min (>89); Glucose,Random 100 mg/dL (74-106); Potassium 3.4 meq/L (3.5-5.1); Sodium 143 meq/L (136-145)
[2017-11-18 09:19] LABS: Cholesterol 125 mg/dL (120-200)
[2017-11-18 09:23] LABS: LDL Cholesterol,Calculated 41 mg/dL (0-99); Triglycerides 160 mg/dL (42-150)
--- NOTE | 2017-11-18 09:24 | P.HPPSY ---
Provisional Diagnosis Admission Date: November 17, 2017 19:26 [place] [facility].: Adjustment disorder with depressed mood Competence Certification of Person's Competence To Provide Express and Informed Consent I have personally examined Kirt Rasheed, a person being served at [facility] on, November 18, 2017 0921. Express and informed consent means consent voluntarily given in writing, by a competent person, after sufficient explanation and disclosure of the subject matter involved to enable the person to make a knowing and willful decision without any element of force, fraud, deceit, duress, or other form of constraint or coercion. This person is 18 years of age or older, is not now known to be incompetent to consent to treatment with a guardian advocate, and does not have a health care surrogate or proxy currently making medical treatment decisions. I have found this person to be one of the following: [xxx] Competent to provide express and informed consent, as defined above, for voluntary admission to this facility and is competent to provide express and informed consent for treatment. He/she has the consistent capacity to make well reasoned, willful, and knowing decisions concerning his or her medical or mental health treatment. The person fully and consistently understands the purpose of the admission for examination/placement and is fully capable of personally exercising all rights assured [place] [] Incompetent to provide express and informed consent to voluntary admission, and this is incompetent to provide express and informed consent to treatment. The person must be transferred to involuntary status and a petition for a guardian advocate filed with the Circuit Court. [] Refusing to provide express and informed consent to voluntary admission but is competent to provide express and informed consent for treatment. The person must be discharged or transferred to involuntary status. Form shall be completed within 24 hours of a person's arrival at the receiving facility and filed in the clinical record of each person: 1. Admitted on a voluntary basis 2. Permitted to provide express and informed consent to his/her own treatment 3. Allowed to transfer from involuntary to voluntary status 4. Prior to permitting a person to consent to his or her own treatment after having been previously found incompetent to consent to treatment. History of Present Illness Capacity: Has capacity History of Present Illness: Patient is a 57-year-old man, , domiciled the , unemployed , with a past psychiatric history of major depressive disorder, ADHD and anxiety , with one previous psychiatric admission 6 months ago, 1 previous suicide attempt via overdose 6 months ago, no history of self-injurious behavior, with a substance use history significant for daily alcohol use, past medical history significant for COPD, CAD, HTN, HLD, who was admitted to the medical service as a suicide attempt via cutting his wrists which patient requires surgical repair and now admitted to the inpatient's medical/psychiatry unit for further evaluation and management. During medical admission patient was seen by psychiatric solutions architect consultant who noted: The patient is a 57 year-old man, domiciled in [place] with his , he has 2 kids, employed in both the market, with psychiatric history of major depressive disorder, ADHD, anxiety, 1 previous psychiatric hospitalization about 6 months ago, one previous suicide attempt by overdosing, the patient is on Ativan 1 mg 3 times daily, Cymbalta 30 mg daily, medical history of CAD, COPD, hypertension, who was brought in as a trauma alert after being found in the car lethargic. By reports the patient had 2 liters of blood around him on the scene and a wound to hi m wrist.The patient was brought in on backboard lethargic, arousable. He had no complaint. When asked what happened, he stated he cut his wrist. He stated he was trying to kill himself, that he was depressed secondary to his medical condition and job situation. The patient denied taking any illicit drugs. Consulted to psychiatry to addressed suicide attempt. Psychiatric evaluation today find a patient that is calm, cooperative, pleasant. The patient is open to speak about recent suicidal attempt. The patient reports that he has been having conflicts with his family, issues at work as well as economical stress. He says that as a result of this stress he has been feeling depressed, hopeless, helpless, no enjoying usual enjoyable activities, feeling pessimistic, detach, having suicidal thoughts. Yesterday he was so disappointed of having to go to work and was feeling so depressed that just right before going to work he decided to cut himself and bleeding today. The patient reports that he now see the event as a stupid and he regretted, "but that does not change my emotions and how I feel in general". He reports that about 6 months ago he was feeling in a similar way and he overdosed to commit suicide and ended up admitted in psychiatry. He was a started in the [facility] and Ativan I has been doing better , but the level of distress increased and he decompensated. At this moment the patient denies suicidal enemas ideation, he denies visual and auditory hallucinations. He says that he is committed to continue his psychiatric treatment, to be admitted if needed. Is fully oriented 3, no attention deficit , no fluctuation of consciousness. The patient reports occasional use of alcohol," almost every day, but no more than 2 cups", denies the use of illegal drugs such as cocaine, cannabis, amphetamines, heroin and others. Discussion nursing staff reported the patient has been calm and cooperative with staff since transfer denying any suicide ideations at this time. Patient was found in the hallway noted B, cooperative interviewed with nurse in his room. Patient states that he been having stress recently at work, feeling frustrated and stressed about his current ongoing medical issues. Patient reports that prior to his suicide attempt he had no changes in sleep, appetite, energy or concentration that his mood has been "up and down and feeling depressed at times but did not have any suicide ideations until day before his suicide attempt. Patient states that that the day prior to her suicide attempt he had a "bad conversation with his boss" and that work has been stressful as they have been deciding more work for him due to being short staffed at work as well as well as feeling frustrated with his ongoing medical issues. Patient at this time reports feeling "fine" denying any suicide ideations since yesterday and is regretful about his recent suicide attempt. Patient reports having visited by his which he feels support from. Patient this time denies any perceptional services or delusions. Family psychiatric history: Cousin with ADHD, son with ADHD and bipolar disorder , no suicides in the family. Past psychiatric history: Previous psychiatric diagnosis of depression, ADHD, anxiety, one previous psychiatric admission 6 months ago, 1 previous suicide attempt 6 months ago via overdose, no history of self-injurious behavior. Patient denies any history of abuse. Patient states that he had a prior psychiatrist clinic at [facility] which he last attended in May and states did not want to return there due to the long waiting times. Substance history: Alcohol use daily about 2 glasses of wine per day, denies use of any other drugs. Past medical history: COPD, CAD, HTN, HLD Allergies: NKDA Social history: , domiciled white, has 2 children, employed, no background, no access to firearms. Denies any legal history. - Inpatient Certification I certify that the inpatient services were ordered in accordance with Medicare regulations governing the order. This includes certification that hospital inpatient services are reasonable and necessary and in the case of services not specified as inpatient-only under 42 CFR 419.22(n), that they are appropriately provided as inpatient services in accordance to with the 2-midnight benchmark under 43 CFR 412.3(e) I certify that inpatient psychiatric hospital services are medically necessary. Evaluation and treatment and/or diagnostic testing are expected to improve the patient's condition. The patient needs on a daily basis, active treatment furnished directly by or requiring the supervision of inpatient psychiatric facility personnel. Estimated Total Length of Stay (Days): 7 Plans for Post Hospital Care: Home Review of Systems All other systems reviewed negative except as stated in HPI PMFSH - History History Provided By: Patient - Medical History Medical History: Medical History (This Medical Record has been edited. Action required.) COPD (chronic obstructive pulmonary disease) Cardiovascular disease ETOH abuse HTN (hypertension) Smoker Suicidal behavior with attempted self-injury - Surgical History Surgical History: Surgical History (This Medical Record has been edited. Action required.) Status post double vessel coronary artery bypass Stented coronary artery - Tobacco History Second Hand Smoke Exposure: Yes Tobacco Use In Past 30 Days: Yes Smoking Status: Smoker, status unknown Tobacco Type: Cigarettes - Alcohol History How Often Do You Have a Drink Containing Alcohol: 2 to 3 times a week - Substance Use History Substance History: No History of Abuse Quality Measures - Psychiatric History Psychological trauma history: Denies Violence risk to others in the last 6 months: Low Violence risk to self in the last 6 months: Elevated - Substance Abuse History Drug or alcohol use in the past 12 months: See HPI - Patient Strengths Patient's strengths (minimum of 2): Verbal and communicative Medications and Allergies Active Medications: Active Medications Al Hydrox/Mg Hydrox/Simethicone (Mag-Al Plus Susp Liq) 30 ml PO Q6H PRN PRN Reason: DYSPEPSIA Al Hydroxide/Mg Hydroxide (Milk Of Magnesia Liq) 30 ml PO Q12H PRN PRN Reason: Mild Constipation Bisacodyl (Dulcolax Supp) 10 mg RECTAL DAILY PRN PRN Reason: SEVERE CONSITIPATION Clonazepam (Klonopin) 0.5 mg PO Q8HR DEIDRA Duloxetine HCl (Cymbalta) 30 mg PO DAILY DEIDRA Lactulose (Lactulose Liq) 30 ml PO DAILY PRN PRN Reason: SEVERE CONSITIPATION Oxycodone/Acetaminophen (Percocet 5/325 Mg) 1 tab PO Q4H PRN PRN Reason: PAIN SCALE 6 TO 10 Senna/Docusate Sodium (Namita-Colace) 1 tab PO BID DEIDRA Sennosides (Senokot) 17.2 mg PO Q12H PRN PRN Reason: Moderate Constipation Allergies Allergy/AdvReac Type Severity Reaction Status Date / Time No Known Allergies AdvReac Unknown Uncoded 11/18/17 09:27 Home Medications Medication Instructions Recorded Confirmed Type Coreg 3.125 mg PO BID 11/16/17 11/16/17 History Cymbalta 40 mg PO DAILY 11/16/17 11/16/17 History Norvasc 10 mg PO DAILY 11/16/17 11/16/17 History Plavix 75 mg pe DAILY 11/16/17 11/16/17 History lorazepam 2 mg PO BID 11/16/17 11/16/17 History simvastatin 20 mg PO HS 11/16/17 11/16/17 History trazodone 50 mg PO HS 11/16/17 11/16/17 History Results - Labs CBC & Chem 7: 11/18/17 08:20 Labs: Laboratory Results - last 24 hr 11/18/17 08:20 Sodium 143 Potassium 3.4 L Chloride 107 Carbon Dioxide 27.2 Anion Gap 9 BUN 16 Creatinine 0.77 Estimated GFR Greater than 89 Random Glucose 100 Calcium 9.0 Cholesterol 125 Exam Vital signs: Vital Signs 11/18/17 05:40 Temperature 98.3 F Pulse Rate 52 L Respiratory Rate 16 Blood Pressure 177/81 H Pulse Oximetry 94 L Intake & Output 11/17/17 11/18/17 11/18/17 18:59 06:59 18:59 Weight 68.039 kg Other: Weight On Admission 68.039 kg Narrative: Patient not noted to be in acute distress, noted with soft cast on left wrist, no gross motor abnormalities, no tremors or EPS, no noted psychomotor retardation or agitation. Mental Status Examination Appearance: Appropriate, Other ([facility] Consciousness: Alert Orientation: x4 Motor Activity: Normal gait Speech: Unremarkable Language: Adequate Fund of Knowledge: Inadequate Attention and Concentration: Adequate Memory: Unremarkable Mood: Sad Affect: Sad Thought Process & Associations: Intact, Linear Thought Content: Appropriate Hallucination Type: None Delusion Type: None Suicidal Ideation: Yes (Denies today) Suicidal Plan: No Suicidal Intention: No Homicidal Ideation: No Homicidal Plan: No Homicidal Intention: No Insight: Fair Judgment: Impulsive Assessment and Plan - Assessment (1) Adjustment disorder with depressed mood Code(s): F43.21 - Adjustment disorder with depressed mood Status: Acute - Plan Plan: Estimated LOS: [] days Patient is a 57-year-old man who carries a diagnosis of depression, ADHD and anxiety with 1 previous hospitalization in 1 previous suicide attempt 6 months ago who was admitted to the medical service along with surgical repair of laceration to left wrist in a suicide attempt which patient is now admitted to the inpatient medical/psychiatry unit for further evaluation and management. Patient this time continues to be at high risk for self-harm as patient had a recent suicide attempt 6 months ago and recently had a serious suicide attempt via cutting wrist. Patient continues with depressed mood along with recent suicide ideation. Patient will continue duloxetine 30 mg p.o. daily along with clonazepam 0.5 mg every 8 hours for anxiety with possible taper. Patient will be admitted under voluntary admission, has capacity to consent for treatment. We will request hospitalist to follow and for recommendations. Continue to monitor mood and behavior. Discharge planning a progress. Justification for Continued Inpatient Stay: At risk of further decompensation a lower level care.
[2017-11-18] MEDS: clonazePAM 0.5 MG Tablet PO SCH ×2 (10:53→17:26)
[2017-11-18] MEDS: Senna/Docusate Sodium 8.6/50 MG Tablet PO SCH ×2 (10:53→21:00)
[2017-11-18 17:13] LABS: Hemoglobin A1c 5.4 % (4.3-6.0)
--- NOTE | 2017-11-18 17:13 | P.CONIM ---
History of Present Illness Requesting Physician: Jorge Rowland Reason for Consult: Medical management Primary Care Provider: UNKNOWN Family Provider: Dev Barragan MD Chief Complaint: Depression History of Present Illness: The patient is a 57-year-old male past medical history of depression, CAD, PVD and COPD who is presenting to the hospital following a suicide attempt. The patient says that earlier this year he tried to kill himself by overdosing on medications. He says that prior to his hospitalization this time he tried to cut his wrist. He said that he has been having a lot of stress in his life from work, his kids and general life stressors. He says that he had surgery and his left arm is feeling better at this time. He denies any pain. He says he is able to move his fingers and does not have any numbness. He says he has a history of COPD but he has been breathing well. He says he is still smoking cigarettes. He says he would like to go home but he is aware he will likely be in the psych unit for a little while until he is stabilized. Discussed with nursing. Review of Systems All other systems reviewed negative except as stated in HPI PMFSH - History History Provided By: Patient - Medical History Medical History: Medical History (Last Updated 11/18/17 @ 17:06 by Tomy Holliday DO) ADD (attention deficit disorder) Peripheral vascular disease COPD (chronic obstructive pulmonary disease) Cardiovascular disease HTN (hypertension) Smoker Suicidal behavior with attempted self-injury - Surgical History Surgical History: Surgical History (Last Reviewed 11/18/17 @ 17:06 by Tomy Holliday DO) Status post double vessel coronary artery bypass Stented coronary artery - Family History Family History: Family History (This Medical Record has been edited. Action required.) Other ADHD (attention deficit hyperactivity disorder) - Tobacco History Second Hand Smoke Exposure: Yes Tobacco Use In Past 30 Days: Yes Smoking Status: Smoker, status unknown Tobacco Type: Cigarettes Packs Per Day: 1 - Alcohol History How Often Do You Have a Drink Containing Alcohol: 4 or more times a week - Substance Use History Substance History: Past History - Substance Use Type Crack/Cocaine Status: Sustained Remission Route Used: By Mouth Frequency: Patient states he stopped using cocaine 30 or 35 years ago. Comment: Patient reports past use of marijuana "almost daily" and stopped 6 or 7 years ago. Medications and Allergies Active Medications: Active Medications Al Hydrox/Mg Hydrox/Simethicone (Mag-Al Plus Susp Liq) 30 ml PO Q6H PRN PRN Reason: DYSPEPSIA Al Hydroxide/Mg Hydroxide (Milk Of Magnesia Liq) 30 ml PO Q12H PRN PRN Reason: Mild Constipation Bisacodyl (Dulcolax Supp) 10 mg RECTAL DAILY PRN PRN Reason: SEVERE CONSITIPATION Carvedilol (Coreg) 3.125 mg PO BID [facility] Clonazepam (Klonopin) 0.5 mg PO Q8H [facility] Last Admin: 11/18/17 10:53 Dose: 0.5 mg Clopidogrel Bisulfate (Plavix) 75 mg PO DAILY [facility] Duloxetine HCl (Cymbalta) 30 mg PO DAILY [facility] Last Admin: 11/18/17 10:53 Dose: 30 mg Fluticasone/Vilanterol (Breo Ellipta 100/25 Mcg Inh) 1 puff INH DAILY [facility] Lactulose (Lactulose Liq) 30 ml PO DAILY PRN PRN Reason: SEVERE CONSITIPATION Oxycodone/Acetaminophen (Percocet 5/325 Mg) 1 tab PO Q4H PRN PRN Reason: PAIN SCALE 6 TO 10 Senna/Docusate Sodium (Namita-Colace) 1 tab PO BID [facility] Last Admin: 11/18/17 10:53 Dose: 1 tab Sennosides (Senokot) 17.2 mg PO Q12H PRN PRN Reason: Moderate Constipation Trazodone HCl (Desyrel) 50 mg PO HS PRN PRN Reason: INSOMNIA Allergies Allergy/AdvReac Type Severity Reaction Status Date / Time No Known Allergies Allergy Unknown . Uncoded 11/18/17 17:09 Home Medications Medication Instructions Recorded Confirmed Type Coreg 3.125 mg PO BID 11/16/17 11/16/17 History Cymbalta 40 mg PO DAILY 11/16/17 11/16/17 History Norvasc 10 mg PO DAILY 11/16/17 11/16/17 History Plavix 75 mg pe DAILY 11/16/17 11/16/17 History lorazepam 2 mg PO BID 11/16/17 11/16/17 History simvastatin 20 mg PO HS 11/16/17 11/16/17 History trazodone 50 mg PO HS 11/16/17 11/16/17 History Exam Vital signs: Vital Signs 11/18/17 05:40 Temperature 98.3 F Pulse Rate 52 L Respiratory Rate 16 Blood Pressure 177/81 H Pulse Oximetry 94 L Intake & Output 11/17/17 11/18/17 11/18/17 18:59 06:59 18:59 Intake Total 960 / 960 Balance 960 / 960 Weight 68.039 kg Intake: Oral 960 / 960 Other: Weight On Admission 68.039 kg Narrative: GEN: No distress HEENT: NC, AT LUNGS: Mild wheezing HEART: RRR. No murmurs GI: Benign EXTREMITIES: LUE in bandage NEURO: No gross deficits Results - Labs CBC & Chem 7: 11/18/17 08:20 Labs: Laboratory Results - last 24 hr 11/18/17 08:20 Sodium 143 Potassium 3.4 L Chloride 107 Carbon Dioxide 27.2 Anion Gap 9 BUN 16 Creatinine 0.77 Estimated GFR Greater than 89 Random Glucose 100 Calcium 9.0 Triglycerides 160 H Cholesterol 125 LDL Cholesterol, Calc 41 HDL Cholesterol 52.0 Cholesterol/HDL Ratio 2.40 Assessment and Plan - Plan Depression S/p suicide attempt by cutting left wrist. - management per psychiatry. Left wrist wound Seen by hand surgery, s/p repair. - wound care per surgery. COPD Still smokes. Has wheezing on exam. - bronchodilators. - smoking cessation instruction. CAD/ PVD S/p CABG and lower extremity stent. - resume Plavix as OK per hand surgery. PPx: Ambulation
[2017-11-18] MEDS ORDERED: traZODone 50 MG Tablet PO PRN (21:00)
[2017-11-19] MEDS ORDERED: hydrALAZINE 10 MG Tablet PO SCH (09:00)
[2017-11-19] MEDS: clonazePAM 0.5 MG Tablet PO SCH ×2 (09:19→20:21)
[2017-11-19] MEDS: Senna/Docusate Sodium 8.6/50 MG Tablet PO SCH ×2 (09:20→20:23)
--- NOTE | 2017-11-19 09:37 | P.PN ---
Subjective Interval history: Follow-up visit for suicide attempts with left wrist laceration. Patient is seen and examined resting in bed comfortably, appears to be in no acute distress. He does report some left hand throbbing pain, repots he has not been elevating it as much as he should. Nurse reports HTN with bradycardia, patient does endorse dizziness when HR is low. Hx bypass 2 years ago, no reports of CP, or SOB. He denies any fevers, chills, nausea, vomiting or diarrhea. Physical Exam Vital signs: Vital Signs 11/18/17 18:32 11/19/17 05:37 Temperature 36.3 C L Pulse Rate 66 52 L Respiratory Rate 16 18 Blood Pressure 173/98 H 158/80 H Pulse Oximetry 96 98 Intake & Output 11/18/17 11/19/17 11/19/17 18:59 06:59 18:59 Intake Total 2039 0 / 0 120 / 120 Balance 2039 / 0 0 / 0 120 / 120 Intake: Oral 2039 0 / 0 120 / 120 Other: # Voids 2 Narrative: GENERAL: Well-developed thin male in no acute distress. SKIN: Warm and dry. HEAD: Atraumatic. Normocephalic. EYES: Pupils equal. No scleral icterus. No injection or drainage. ENT: No nasal bleeding or discharge. Mucous membranes pink and moist. NECK: Trachea midline. No JVD. CARDIOVASCULAR: Regular rate and rhythm, no clicks or rubs appreciated RESPIRATORY: No accessory muscle use. Clear to auscultation. Breath sounds equal bilaterally. GASTROINTESTINAL: Abdomen soft, non-tender, nondistended. MUSCULOSKELETAL: Extremities without clubbing, cyanosis, or edema. No obvious deformities. Left wrist/forearm and soft cast, + range of motion to all fingers , capillary refill less than 3 seconds, positive sensation. NEUROLOGICAL: Awake and alert. No obvious cranial nerve deficits. Motor grossly within normal limits. Normal speech. PSYCHIATRIC: Appropriate mood and affect; insight and judgment normal. Results - Labs CBC & Chem 7: 11/18/17 08:20 Laboratory Results - last 24 hr 11/18/17 08:20 Hemoglobin A1c 5.4 Assessment and Plan - Plan Depression S/p suicide attempt by cutting left wrist. - management per psychiatry. Left wrist wound Seen by hand surgery, on 11/15 is s/p Exploration, wash, debridement and repair lacerations, flexor digitorum profundus muscle and extensor pollicis brevis tendon left forearm -Most recent thumb spica splint applied on 11/17, will need to follow-up in 1 week as outpatient with hand surgery. -Pain control with as needed Percocet COPD, not exacerbated - bronchodilators. - smoking cessation reiterated. CAD/ PVD S/p CABG and lower extremity stent. -Continue Plavix as OK per hand surgery. Hypertension -Patient reports that previously he was on Norvasc 10 mg daily, BP has been on the high side, will restart Norvasc. Patient on carvedilol, with holding parameters due to bradycardia. -Continue monitoring BP and heart rate and adjusting medications accordingly. Bradycardia -Patient reports dizziness with bradycardia, parameters placed for carvedilol, check EKG, check orthostatic BPs. PPx: Ambulation Discussed Condition With: Patient and nurse.
[2017-11-19] MEDS: amLODIPine 10 MG Tablet PO SCH (10:40)
--- NOTE | 2017-11-19 16:08 | P.PNPSY ---
Subjective Remarks: Patient was seen and case discussed with nursing. Patient says he no longer has suicidal ideation intent or plan. His affect is quite flat and he can remains depressed. He does minimize his suicide attempt. He is eating well. However sleep is poor. We discussed medication options and he gives consent to change his nighttime dose of Klonopin to before bed Mental Status Examination Appearance: Appropriate, Other ([facility]) Consciousness: Alert Orientation: x4 Motor Activity: Normal gait Speech: Unremarkable Language: Adequate Fund of Knowledge: Inadequate Attention and Concentration: Adequate Memory: Unremarkable Mood: Sad Affect: Sad Thought Process & Associations: Intact, Linear Thought Content: Appropriate Hallucination Type: None Delusion Type: None Suicidal Ideation: No (Denies today) Suicidal Plan: No Suicidal Intention: No Homicidal Ideation: No Homicidal Plan: No Homicidal Intention: No Insight: Fair Judgment: Impulsive Assessment and Plan - Assessment (1) Adjustment disorder with depressed mood Code(s): F43.21 - Adjustment disorder with depressed mood Status: Acute - Plan Plan: Change to 2 a.m. Klonopin to before bed Justification for Continued Inpatient Stay: Patient would decompensate in a less restrictive setting
[2017-11-20] MEDS: clonazePAM 0.5 MG Tablet PO SCH ×3 (00:59→17:55)
--- NOTE | 2017-11-20 08:36 | P.PN ---
Subjective Interval history: Follow-up visit for suicide attempts with left wrist laceration. Patient is seen and examined resting in bed in no acute distress. He denies any fevers, chills, N/V/D, cough, SOB, chest pain, dizziness, or lightheadedness. No reports of arm pain or discomfort, discussed with patient he is medically stable and could possibly be moved to regular psychiatry unit. He stets he would like to go home not moved. Physical Exam Vital signs: Vital Signs 11/19/17 18:51 11/20/17 05:33 Temperature 36.6 C 36.2 C L Pulse Rate 65 73 Respiratory Rate 17 18 Blood Pressure 148/76 H 112/58 L Pulse Oximetry 98 98 Intake & Output 11/19/17 11/20/17 11/20/17 18:59 06:59 18:59 Intake Total 960 / 960 480 / 480 Balance 960 / 960 480 / 480 Intake: Oral 960 / 960 480 / 480 Other: # Voids 3 Narrative: GENERAL: Well-developed thin male in no acute distress. SKIN: Warm and dry. HEAD: Atraumatic. Normocephalic. EYES: Pupils equal. No scleral icterus. No injection or drainage. ENT: No nasal bleeding or discharge. Mucous membranes pink and moist. NECK: Trachea midline. CARDIOVASCULAR: Regular rate and rhythm, no clicks or rubs appreciated RESPIRATORY: No accessory muscle use. Clear to auscultation. Breath sounds equal bilaterally. GASTROINTESTINAL: Abdomen soft, non-tender, nondistended. MUSCULOSKELETAL: Extremities without clubbing, cyanosis, or edema. No obvious deformities. Left wrist/forearm and soft cast, + range of motion to all fingers , capillary refill less than 3 seconds, positive sensation. NEUROLOGICAL: Awake and alert. No obvious cranial nerve deficits. Motor grossly within normal limits. Normal speech. PSYCHIATRIC: Appropriate mood and affect; insight and judgment normal. Results - Labs CBC & Chem 7: 11/18/17 08:20 Assessment and Plan - Plan Depression S/p suicide attempt by cutting left wrist. - management per psychiatry. Left wrist wound Seen by hand surgery, on 11/15 is s/p Exploration, wash, debridement and repair lacerations, flexor digitorum profundus muscle and extensor pollicis brevis tendon left forearm -Most recent thumb spica splint applied on 11/17, will need to follow-up in 1 week as outpatient with hand surgery. Discussed with patient, he understands. -Pain control with as needed Percocet, none used. COPD, not exacerbated - bronchodilators. - smoking cessation reiterated. CAD/ PVD S/p CABG and lower extremity stent. -Continue Plavix as OK per hand surgery. Hypertension -Continue Norvasc 10 mg daily, carvedilol, with holding parameters. -BP stable Bradycardia -Patient reports dizziness with bradycardia, parameters placed for carvedilol, check EKG stable. -Dizziness resolved, HR stable, discussed possible side effect of BB. PPx: Ambulation Patient is medically stable. [facility] will sign off, please reconsult if needed. Patient will followup with hand surgery for soft spica splint removal. Discussed Condition With: Patient and nurse.
[2017-11-20] MEDS: Senna/Docusate Sodium 8.6/50 MG Tablet PO SCH ×2 (09:06→20:11)
[2017-11-20] MEDS: amLODIPine 10 MG Tablet PO SCH (09:08)
--- NOTE | 2017-11-20 14:58 | P.PNPSY ---
Subjective Remarks: Patient was seen and case discussed with nursing. Interview done today with patient and in the room. They are both perseverative on discharge. The patient says he is no longer suicidal and his mood has improved. Affect is quite anxious. Behaving well on the unit and compliant with his medications Mental Status Examination Appearance: Appropriate, Other ([facility]) Consciousness: Alert Orientation: x4 Motor Activity: Normal gait Speech: Unremarkable Language: Adequate Fund of Knowledge: Inadequate Attention and Concentration: Adequate Memory: Unremarkable Mood: Sad Affect: Sad Thought Process & Associations: Intact, Linear Thought Content: Appropriate Hallucination Type: None Delusion Type: None Suicidal Ideation: No (Denies today) Suicidal Plan: No Suicidal Intention: No Homicidal Ideation: No Homicidal Plan: No Homicidal Intention: No Insight: Fair Judgment: Impulsive Assessment and Plan - Assessment (1) Adjustment disorder with depressed mood Code(s): F43.21 - Adjustment disorder with depressed mood Status: Acute - Plan Plan: Change to 2 a.m. [facility] to before bed Justification for Continued Inpatient Stay: Patient would decompensate in a less restrictive setting
[2017-11-21] MEDS: clonazePAM 0.5 MG Tablet PO SCH ×2 (01:26→09:21)
[2017-11-21] MEDS: amLODIPine 10 MG Tablet PO SCH (09:21)
[2017-11-21] MEDS: Senna/Docusate Sodium 8.6/50 MG Tablet PO SCH (10:08)
--- NOTE | 2017-11-21 12:16 | ECG ---
Date Performed: 11/19/2017 Time Performed: 12:32:44 PTAGE: 57 years EKG: SINUS BRADYCARDIA INTRAVENTRICULAR CONDUCTION DELAY ABNORMAL ECG PREVIOUS TRACING : 09/05/2017 10.56 DOCTOR: Xiomara Arreguin Interpretating Date/Time 11/21/2017 12:07:25
--- NOTE | 2017-11-21 20:20 | P.DSPSY ---
Psychiatry Discharge Summary Inpatient Psychiatric care?: Yes Advance Directives: No Mental Health Advance Directive: No Health Care Proxy: No - Admission Admission Date: November 17, 2017 19:26 - Admission Diagnosis (1) Adjustment disorder with depressed mood Code(s): F43.21 - Adjustment disorder with depressed mood Brief History: Patient is a 57-year-old man, , domiciled the , unemployed , with a past psychiatric history of major depressive disorder, ADHD and anxiety , with one previous psychiatric admission 6 months ago, 1 previous suicide attempt via overdose 6 months ago, no history of self-injurious behavior, with a substance use history significant for daily alcohol use, past medical history significant for COPD, CAD, HTN, HLD, who was admitted to the medical service as a suicide attempt via cutting his wrists which patient requires surgical repair and now admitted to the inpatient's medical/psychiatry unit for further evaluation and management. During medical admission patient was seen by psychiatric oncology consultant who noted: The patient is a 57 year-old man, domiciled in [place] with his , he has 2 kids, employed in both the market, with psychiatric history of major depressive disorder, ADHD, anxiety, 1 previous psychiatric hospitalization about 6 months ago, one previous suicide attempt by overdosing, the patient is on Ativan 1 mg 3 times daily, Cymbalta 30 mg daily, medical history of CAD, COPD, hypertension, who was brought in as a trauma alert after being found in the car lethargic. By reports the patient had 2 liters of blood around him on the scene and a wound to hi m wrist.The patient was brought in on backboard lethargic, arousable. He had no complaint. When asked what happened, he stated he cut his wrist. He stated he was trying to kill himself, that he was depressed secondary to his medical condition and job situation. The patient denied taking any illicit drugs. Consulted to psychiatry to addressed suicide attempt. Psychiatric evaluation today find a patient that is calm, cooperative, pleasant. The patient is open to speak about recent suicidal attempt. The patient reports that he has been having conflicts with his family, issues at work as well as economical stress. He says that as a result of this stress he has been feeling depressed, hopeless, helpless, no enjoying usual enjoyable activities, feeling pessimistic, detach, having suicidal thoughts. Yesterday he was so disappointed of having to go to work and was feeling so depressed that just right before going to work he decided to cut himself and bleeding today. The patient reports that he now see the event as a stupid and he regretted, "but that does not change my emotions and how I feel in general". He reports that about 6 months ago he was feeling in a similar way and he overdosed to commit suicide and ended up admitted in psychiatry. He was a started [facility] has been doing better , but the level of distress increased and he decompensated. At this moment the patient denies suicidal enemas ideation, he denies visual and auditory hallucinations. He says that he is committed to continue his psychiatric treatment, to be admitted if needed. Is fully oriented 3, no attention deficit , no fluctuation of consciousness. The patient reports occasional use of alcohol," almost every day, but no more than 2 cups", denies the use of illegal drugs such as cocaine, cannabis, amphetamines, heroin and others. Discussion nursing staff reported the patient has been calm and cooperative with staff since transfer denying any suicide ideations at this time. Patient was found in the hallway noted B, cooperative interviewed with nurse in his room. Patient states that he been having stress recently at work, feeling frustrated and stressed about his current ongoing medical issues. Patient reports that prior to his suicide attempt he had no changes in sleep, appetite, energy or concentration that his mood has been "up and down and feeling depressed at times but did not have any suicide ideations until day before his suicide attempt. Patient states that that the day prior to her suicide attempt he had a "bad conversation with his boss" and that work has been stressful as they have been deciding more work for him due to being short staffed at work as well as well as feeling frustrated with his ongoing medical issues. Patient at this time reports feeling "fine" denying any suicide ideations since yesterday and is regretful about his recent suicide attempt. Patient reports having visited by his which he feels support from. Patient this time denies any perceptional services or delusions. Family psychiatric history: Cousin with ADHD, son with ADHD and bipolar disorder , no suicides in the family. Past psychiatric history: Previous psychiatric diagnosis of depression, ADHD, anxiety, one previous psychiatric admission 6 months ago, 1 previous suicide attempt 6 months ago via overdose, no history of self-injurious behavior. Patient denies any history of abuse. Patient states that he had a prior psychiatrist clinic at [facility] which he last attended in May and states did not want to return there due to the long waiting times. Substance history: Alcohol use daily about 2 glasses of wine per day, denies use of any other drugs. Past medical history: COPD, CAD, HTN, HLD Allergies: NKDA Social history: , domiciled white, has 2 children, employed, no background, no access to firearms. Denies any legal history. Tobacco Use In Past 30 Days: Yes How Often Do You Have a Drink Containing Alcohol: 4 or more times a week Hospital Course: Patient is a 57-year-old man, , domiciled the , unemployed , with a past psychiatric history of major depressive disorder, ADHD and anxiety , with one previous psychiatric admission 6 months ago, 1 previous suicide attempt via overdose 6 months ago, no history of self-injurious behavior, with a substance use history significant for daily alcohol use, past medical history significant for COPD, CAD, HTN, HLD, who was admitted to the medical service as a suicide attempt via cutting his wrists which patient requires surgical repair and now admitted to the inpatient's medical/psychiatry unit for further evaluation and management. Patient was started on duloxetine 30mg daily, clonazepam 0.5mg PO TID which he tolerated well with no notable adverse drug reactions. Patient noted with depressed mood initially with minimization of suicide attempt but reported lessening of depressed mood and denies suicidal ideations which he denied throughout admission. Patient was noted to have improved mood with stabilization of mood and was not noted to respond to internal stimuli nor endorse any perceptual disturbances. He was observed by staff to not have had any behavioral disturbances, not having made any suicidal or homicidal statements and maintained stable mood through admission and was noted to participate with staff adequately. Upon discharge patient stated that he was feeling good, reported well with the treatment, denied any SI, HI, perceptual disturbances or delusions. Patient was counseled on importance of maintaining compliance with treatment and outpatient follow up which he agreed with. Safety plan was reviewed with patient. Weighing the acute, chronic, and protective factors and based on the available evidence, I strategic marketing specialist to a reasonable degree of medical certainty that the patient is at low imminent risk of harm to self or others from a mental illness as defined under the Stern act and his level of function is adequate as observed on the unit for planned level of outpatient care. He was counseled regarding warning signs for need to return to the psychiatric emergency room as part of a general safety plan. Patient advised to call 911 or go nearest ED in case of emergency. Patient agreed with plan. - Discharge Discharge Date: 11/21/17 - Discharge Diagnosis (1) Adjustment disorder with depressed mood Code(s): F43.21 - Adjustment disorder with depressed mood Status: Acute Discharge Disposition: Home - Discharge Instructions Discharge Diet: Heart Healthy Diet Activities You Can Perform: Weight Bearing As Tolerat - Discharge Time > 30 minutes Mental Status Examination Appearance: Appropriate Consciousness: Alert Orientation: x4 Motor Activity: Normal gait Speech: Unremarkable Language: Adequate Fund of Knowledge: Inadequate Attention and Concentration: Adequate Memory: Unremarkable Mood: Appropriate Affect: Appropriate Thought Process & Associations: Intact, Goal directed, Linear Thought Content: Appropriate Hallucination Type: None Delusion Type: None Suicidal Ideation: No Suicidal Plan: No Suicidal Intention: No Homicidal Ideation: No Homicidal Plan: No Homicidal Intention: No Insight: Fair Judgment: Impulsive Discharge/Advance Care Plan - Results Vital Signs: Last Vital Signs Temp 97.5 F L 11/21/17 06:00 Pulse 60 11/21/17 06:00 Resp 17 11/21/17 06:00 BP 149/75 H 11/21/17 06:00 Pulse Ox 98 11/21/17 06:00 Lab Results: Laboratory Results Hemoglobin A1c 5.4 % (4.3-6.0) 11/18/17 08:20 Triglycerides 160 mg/dL (42-150) H 11/18/17 08:20 Cholesterol 125 mg/dL (120-200) 11/18/17 08:20 LDL Cholesterol, Calc 41 mg/dL (0-99) 11/18/17 08:20 HDL Cholesterol 52.0 mg/dL (40.0-60.0) 11/18/17 08:20 Summary of Procedures: none Pending Results: None - Medications Number of antipsychotic medications at discharge: 0 - Discharge Care Plan Goals to Promote Your Health: * To prevent worsening of your condition and complications * To maintain your health at the optimal level Directions to Meet Your Goals: Take your medications as prescribed Follow your dietary instruction Follow activity as directed Keep your appointments as scheduled Take your immunizations and boosters as scheduled If your symptoms worsen call your PCP, if no PCP go to Urgent Care Center or Emergency Room For 29/11 questions related to your inpatient stay or results of tests pending at discharge, please contact Dr. Jorge Rowland MD at Smoking is Dangerous to Your Health. Avoid second hand smoking
== END 2017-11-21 17:00 | disposition home or self-care (01) ==
LOC: H4EA 19:26
PROVIDERS: ADMIT Student in an Organized Health Care Education/Training Program; ATTEND Student in an Organized Health Care Education/Training Program